=== PATIENT | male | born 1990 | race Caucasian/White ===

== ENCOUNTER 2021-09-29 13:00 | Inpatient (IN) | payer MEDICAID, OTHER ==
[~2021-09-29] VITALS: Ht 180.3 cm; Wt 65.9 kg
[~2021-09-29 13:00] MED LIST: FAMO-128 PO; ONDA8TAB9 PO
[2021-09-29 13:55] LABS: ALANINE AMINOTRANSFERASE 154 U/L (12-78); ALBUMIN 4.3 G/DL (3.4-5.0); ALBUMIN/GLOBULIN RATIO 1.2 (1.1-1.5); ALKALINE PHOSPHATASE 58 IU/L (46-116); ANION GAP 17 (8-16); ASPARTATE AMINO TRANSFERASE 254 U/L (10-37); BILIRUBIN,TOTAL 2.1 MG/DL (0.1-1.0); BLOOD UREA NITROGEN 28 MG/DL (7-18); BUN/CREATININE RATIO 14.4 (5.4-32.0); CALCIUM 8.6 MG/DL (8.5-10.1); CHLORIDE 87 MMOL/L (99-107); CREATININE 1.94 MG/DL (0.60-1.10); GLUCOSE 241 MG/DL (70-104); SODIUM 133 MMOL/L (135-145); TOTAL PROTEIN 7.9 G/DL (6.4-8.2); eGFR 40 ML/MIN
[2021-09-29 14:38] LABS: LIPASE 11546 U/L (73-393); POTASSIUM 4.2 MMOL/L (3.5-5.1)
[2021-09-29 14:42] LABS: BASOPHILS % (AUTO) 0.2 % (0-1); EOSINOPHILS % (AUTO) 0 % (0-6); HEMATOCRIT 52.6 % (42.0-52.0); LYMPHOCYTES # (AUTO) 0.8 X10'3 (1.1-4.8); LYMPHOCYTES % (AUTO) 5.8 % (21-51); MEAN CORPUSCULAR HEMOGLOBIN 34.2 PG (27.0-31.0); MEAN CORPUSCULAR HGB CONC 34.2 g/dL (33.0-36.5); MEAN CORPUSCULAR VOLUME 99.9 FL (78-98); MEAN PLATELET VOLUME 10.1 FL (7.4-10.4); MONOCYTES # (AUTO) 1.1 X10'3 (0-0.9); MONOCYTES % (AUTO) 8.1 % (2-12); NEUTROPHILS # (AUTO) 11.3 X10'3 (1.8-7.7); NEUTROPHILS % (AUTO) 85.9 % (42-75); PLATELET COUNT 89 X10'3 (140-440); RED BLOOD COUNT 5.27 X10'6 (4.70-6.10); RED CELL DISTRIBUTION WIDTH 14.3 % (11.5-14.5); WHITE BLOOD COUNT 13.1 X10'3 (4.5-11.0)
[2021-09-29] MEDS ORDERED: ondansetron/PF 4mg/2ml inj IV ONE (15:05)
[2021-09-29] MEDS ORDERED: morphine 4 MG/ML inj SYRINge IV ONE (15:05)
[2021-09-29] MEDS ORDERED: normal saline 1000ml 1,000 ML IV ONE ×4 (15:15→20:50)
[2021-09-29 15:28] LABS: TOTAL CELLS COUNTED 100
[2021-09-29 15:29] LABS: PLATELET ESTIMATE DECREASED
[2021-09-29 15:32] LABS: ETHANOL < 0.010 GM/DL (0.0-0.010)
[2021-09-29] MEDS ORDERED: NO HOME MEDS (15:34)
[2021-09-29] MEDS ORDERED: piperacillin/tazo 3.375gm/50ml 50 ML IV ONE (16:20)
[2021-09-29 17:33] LABS: URINE AMPHETAMINE SCREEN NEGATIVE (Neg); URINE BARBITUATE SCREEN NEGATIVE (Neg); URINE BENZODIAZEPINES SCREEN NEGATIVE (Neg); URINE CANNABINOID SCREEN NEGATIVE (Neg); URINE COCAINE SCREEN NEGATIVE (Neg); URINE METHADONE SCREEN NEGATIVE (Neg); URINE OPIATE SCREEN POSITIVE (Neg); URINE PHENCYCLIDINE SCREEN NEGATIVE (Neg)
[2021-09-29 17:38] LABS: UA COLLECTION TYPE NON-SPECIFIED
[2021-09-29 17:39] LABS: CLARITY,URINE CLOUDY (Clear); COLOR,URINE AMBER (Yellow)
[2021-09-29 17:46] LABS: HYALINE CASTS >30 /LPF (NEGATIVE); MUCUS STRANDS MODERATE /LPF (Neg); SQUAMOUS EPITHELIAL CELL,UR FEW /LPF (FEW)
[2021-09-29] MEDS ORDERED: LORazepam 2 mg/ml vial ONE (17:46)
[2021-09-29 17:47] LABS: BACTERIA,URINE 1+ /HPF (Neg); RBC,URINE 0-2 /HPF (0-2); WBC,URINE 0-4 /HPF (0-4)
[2021-09-29] MEDS ORDERED: levetiracetam inj 1,000 MG in normal saline 100ml IV soln 90 ML IV STA (17:47)
[2021-09-29] MEDS ORDERED: LORazepam 2 mg/ml vial IV ONE (17:50)
[2021-09-29] MEDS ORDERED: levetiracetam-NS 1000mg/100ml 100 ML IV STA (17:54)
--- NOTE | 2021-09-29 18:45 | NUR ---
ASSUMED CARE OF PT. PT HAS BEEN MEDICATED W/ ATIVAN. PT ALERT AND ORIENTED X4. TACHYCARDIC. HOSPITALIST HAS COME TO ASSESS PT AND IS TALKING W/ PT.
[2021-09-29] MEDS ORDERED: ondansetron/PF 4mg/2ml inj IV PRN (18:50)
[2021-09-29] MEDS ORDERED: magnesium 2GM in 50ml NS 50 ML IV PRN (18:50)
[2021-09-29] MEDS ORDERED: ondansetron 4mg rapidly disintigrating tab PO PRN (18:50)
[2021-09-29] MEDS ORDERED: acetaminophen 325mg tablet PO PRN (18:50)
[2021-09-29] MEDS ORDERED: acetaminophen 650mg rectal suppository RC PRN (18:50)
[2021-09-29] MEDS ORDERED: HYDROcodone/acetaminophen 10/325mg tab PO PRN (18:50)
[2021-09-29] MEDS ORDERED: magnesium 4gm in 100ml NS 100 ML IV PRN (18:50)
[2021-09-29] MEDS ORDERED: magnesium Cl slow-release 64mg tablet PO PRN (18:50)
[2021-09-29] MEDS ORDERED: magnesium hydroxide 30ml (MOM) UD suspension PO PRN (18:50)
[2021-09-29] MEDS ORDERED: metoclopramide 5 mg/ml inj IV PRN (18:50)
[2021-09-29] MEDS ORDERED: bisacodyl 10mg suppository rectal RC PRN (18:50)
[2021-09-29] MEDS ORDERED: mag hydrox/Alum hydrox/simeth 30ml oral suspension PO PRN (18:50)
[2021-09-29] MEDS ORDERED: haloperidol 5mg tablet PO PRN (18:50)
[2021-09-29] MEDS ORDERED: potassium Cl 20 mEq SR tablet PO PRN (18:50)
[2021-09-29] MEDS ORDERED: HYDROcodone/acetaminophen 5mg/325mg tablet PO PRN (18:50)
[2021-09-29] MEDS ORDERED: HYDROmorphone inj. 0.5 MG/0.5 ML DISP.SYRIN IV PRN (18:50)
[2021-09-29] MEDS ORDERED: LORazepam 2 mg/ml vial IV PRN (18:50)
[2021-09-29] MEDS ORDERED: haloperidol lactate 5mg/ml inj IM PRN (18:50)
[2021-09-29] MEDS ORDERED: dextrose 50%-water 50ml dispensing syringe IV PRN (18:50)
[2021-09-29] MEDS ORDERED: HYDROmorphone/PF 0.2 MG/ML SYRINGE IV PRN (18:50)
--- NOTE | 2021-09-29 19:27 | NUR ---
ASSISTED PTS MOTHER LOUIS EVELYN WITH A COVID TEST THAT WAS NEGAIVE
[2021-09-29] MEDS: LORazepam 2 mg/ml vial IV PRN ×6 (19:34→21:38)
--- NOTE | 2021-09-29 19:35 | NUR ---
PT BACK FROM CT. CONTINUES TO BE TACHYCARDIC. SPO2 ABOVE 98%. 2 LITERS OF NS RUNNING. RN GABRIELA BEATTY HOSPITALIST WITH CRITICAL LACTIC RESULT.
[2021-09-29 19:40] LABS: MAGNESIUM 1.7 MG/DL (1.5-2.4)
[2021-09-29 19:41] LABS: POTASSIUM 4.1 MMOL/L (3.5-5.1)
[2021-09-29] MEDS: normal saline 1000ml 1,000 ML IV SCH (19:41)
[2021-09-29 19:42] LABS: APTT 27 SECONDS (22-32)
--- NOTE | 2021-09-29 19:46 | NUR ---
SPOKE TO DR FELICIANO, TALKED TO HIM ABOUT PT'S LACTIC ACID, TACHYCARDIA, AND BLOOD PRESSURE. HE WILL PUT IT ORDER FOR SHANELL.
[2021-09-29] MEDS: enoxaparin 40mg/0.4ml syringe SQ SCH (20:00)
[2021-09-29] MEDS: docusate sod 100mg capsule PO SCH (20:00)
[2021-09-29] MEDS: K and/or MAG REPLACEMENT MC SCH (20:00)
--- NOTE | 2021-09-29 20:00 | NUR ---
SITTER IN ROOM W/ PT. PT MEDICATED WITH ATIVAN PER PROTOCOL.
--- NOTE | 2021-09-29 20:02 | NUR ---
CALLED PHARMACY AND REQUESTED ATIVAN TO BE STOCKED IN OMNICELL.
--- NOTE | 2021-09-29 20:19 | NUR ---
PT MEDICATED W/ ATIVAN PER ALCOHOL WITHDRAWAL [facility] PROTOCOL. PT STILL TACHYCARDIC.
--- NOTE | 2021-09-29 20:29 | NUR ---
PT ATTEMPTED TO PULL AT LINES. ALSO PULLED AT NEWLY PLACED REECE CATHETER. SITTER IN ROOM.
--- NOTE | 2021-09-29 20:46 | NUR ---
PT MEDICATED FOR ALCOHOL WITHRAWAL AGITATION PER PROTOCOL. SITTER REMAINS AT BEDSIDE W/ PT.
[2021-09-29] MEDS ORDERED: temazepam 15mg capsule PO PRN (21:00)
--- NOTE | 2021-09-29 21:00 | NUR ---
PT MEDICATED WITH HALDOL PER ETOH WITHDRAWAL PROTOCOL
--- NOTE | 2021-09-29 21:02 | NUR ---
LOVENOX NOT GIVEN PT PLT COUNT LOW
--- NOTE | 2021-09-29 21:13 | NUR ---
PT MEDICATED W/ ATIVAN PER ETOH WITHDRAWAL PROTOCOL. BP GOOD. SAO2 98% ON RA. PT CONFUSED BUT CAN BE REDIRECTED FOR SHORT PERIOD OF TIME.
--- NOTE | 2021-09-29 21:19 | NUR ---
SPOKE TO DR FELICIANO CONCERNING PT'S CONTINUED TACHYCARDIA AND AGITATION. GIVEN ORDER TO CONTINUE GIVING ATIVAN "BECAUSE HE NEEDS TO SLEEP". DR FELICIANO GAVE TELEPHONE ORDER FOR SOFT RESTRAINTS. SITTER IN ROOM APPLYING SOFT RESTRAINTS ON PT PT IS PULLING HIS REECE CATHETER.
--- NOTE | 2021-09-29 21:20 | NUR ---
ASSESSED PT'S SOFT WRIST RESTRAINTS. DISTAL CSM INTACT TO BOTH HANDS.
--- NOTE | 2021-09-29 21:30 | NUR ---
BUSINESS DEVELOPMENT, ANJALI, SPOKE TO NURSING CLINICAL REVIEW NURSE ABOUT PT'S ATIVAN DOSES AND OVERALL STATUS.
[2021-09-29] MEDS: thiamine 100mg/ml 2ml inj. IV SCH (21:38)
--- NOTE | 2021-09-29 21:42 | NUR ---
PT SLEEPING BUT EASILY AWAKENS WHEN I TALK TO HIM OR START GIVING MEDICATIONS. CONTINUES TO BE TACHYCARDIC. BP 111/68. SPO2 98% ON RA.
--- NOTE | 2021-09-29 22:04 | NUR ---
GAVE REPORT TO FLOOR RN. PT HAS NO TELE MONITOR ORDER. D/T TACHYCARDIA, SPOKE TO DR FELICIANO OVER THE PHONE. GIVE TO FOR TELEMONITOR ORDER. ORDER PLACED. PREPARING PT FOR TRANSPORT TO FLOOR.
--- NOTE | 2021-09-29 22:26 | NUR ---
PT TRANSPORTED TO FLOOR. FLOOR RN, SANDIE, W/ PT.
--- NOTE | 2021-09-29 22:29 | NUR ---
UPDATED MOTHER, LOUIS, ON PT'S STATUS.
[2021-09-29 22:45] VITALS: BP 114/69
--- NOTE | 2021-09-29 23:05 | NUR ---
Received report from JAN Anderson. 2220L:Patient transported by [employer] and Monica. Patient moved from rney to bed. Soft wrist restraints are in place. Patient is drowsy but arouses and talking, speech is grabbled. Bag of belongings came up with patient. Tele placed, Vitals taken, Temp 101.1 axillary. Notified, Tylenol order given NC. Will continue to monitor. Addendum: 09/30/21 at 0342 by Reuben Ochoa RN speech is garbled
[2021-09-29] MEDS: acetaminophen 650mg rectal suppository RC PRN (23:25)
[2021-09-29] MEDS: piperacillin/tazo 3.375gm/50ml 50 ML IV SCH (23:27)
--- NOTE | 2021-09-30 01:42 | NUR ---
Notified MD of heart rate sustaining in the 130's, and low urine output. New order given for 500 LR bolus, If hear rate still high give 500ml more.
[2021-09-30] MEDS ORDERED: ringers solution, lacted 1,000 ML IV ONE (01:45)
[2021-09-30 02:04] VITALS: BP 116/80
--- NOTE | 2021-09-30 03:23 | NUR ---
Patient woke up and seems to be clearing mentally. He was able to answer questions appropriately,and asked for the remote to turn the TV on. Speech is more clear. Restraints were removed, patient educated on how to use the call light, and not to pull on his lines or zelaya. Will continue to monitor.
--- NOTE | 2021-09-30 03:37 | NUR ---
Heart rate is still tachy. It is between 125-129, after 500ml of fluid bolus. I just started another 500ml bolus, per orders given earlier by Hospitalist, Dr Tuttle. Will continue to monitor patient
--- NOTE | 2021-09-30 04:07 | NUR ---
Patient resting, in no apparent distress, Respirations 21, HR down to 110 after another 500ml bolus. Restraints are still removed at this time. Will continue to monitor heart rate and urine out put.
[2021-09-30] MEDS: normal saline 1000ml 1,000 ML IV SCH ×3 (04:50→20:16)
[2021-09-30] MEDS: LORazepam 2 mg/ml vial IV PRN ×8 (05:10→22:29)
[2021-09-30 06:00] VITALS: BP 115/87
--- NOTE | 2021-09-30 06:28 | NUR ---
Patient had restraints placed back on in 0500 hour. Was instructed multiple times not to try and get out of bed,or pull on lines. 0600: Patient was found with EKG, IV, and zelaya out, and he was in the bathroom. Dr Tuttle was notified, sitter order was given. I informed Dr Tuttle that his heart rate has was back in the 130's and with exertion 150'2. He said , " Sedate him, He needs to sleep. Give Ativan every 15mins". I informed him that he does not have Ativan ordeed every 15 mins. He said put the severe protocol in place.
--- NOTE | 2021-09-30 06:30 | NUR ---
Patient in room ORTHO 4017. I have received report from SHELLEY MONTOYA and had the opportunity to ask questions and assume patient care.
[2021-09-30] MEDS ORDERED: LORazepam 2 mg/ml vial IV PRN (06:50)
--- NOTE | 2021-09-30 06:59 | NUR ---
Problems reprioritized. Patient report given, questions answered & plan of care reviewed with JAN Mcmanus Sitter at bedside.
[2021-09-30 07:29] LABS: BASOPHILS % (AUTO) 0.3 % (0-1); EOSINOPHILS % (AUTO) 0 % (0-6); HEMATOCRIT 41.6 % (42.0-52.0); HEMOGLOBIN 14.3 g/dl (14.0-17.9); LYMPHOCYTES # (AUTO) 0.7 X10'3 (1.1-4.8); LYMPHOCYTES % (AUTO) 7.6 % (21-51); MEAN CORPUSCULAR HEMOGLOBIN 34.9 PG (27.0-31.0); MEAN CORPUSCULAR HGB CONC 34.4 g/dL (33.0-36.5); MEAN CORPUSCULAR VOLUME 101.2 FL (78-98); MONOCYTES # (AUTO) 0.9 X10'3 (0-0.9); MONOCYTES % (AUTO) 9.7 % (2-12); NEUTROPHILS # (AUTO) 7.6 X10'3 (1.8-7.7); NEUTROPHILS % (AUTO) 82.4 % (42-75); PLATELET COUNT 61 X10'3 (140-440); RED BLOOD COUNT 4.11 X10'6 (4.70-6.10); RED CELL DISTRIBUTION WIDTH 14.3 % (11.5-14.5); WHITE BLOOD COUNT 9.3 X10'3 (4.5-11.0)
[2021-09-30 07:31] LABS: APTT 29 SECONDS (22-32)
[2021-09-30 07:35] LABS: ALANINE AMINOTRANSFERASE 199 U/L (12-78); ALBUMIN 2.9 G/DL (3.4-5.0); ALBUMIN/GLOBULIN RATIO 1.1 (1.1-1.5); ALKALINE PHOSPHATASE 39 IU/L (46-116); AMYLASE 504 U/L (25-115); ANION GAP 13 (8-16); ASPARTATE AMINO TRANSFERASE 425 U/L (10-37); BLOOD UREA NITROGEN 17 MG/DL (7-18); BUN/CREATININE RATIO 13.5 (5.4-32.0); CALCIUM 6.7 MG/DL (8.5-10.1); CHLORIDE 106 MMOL/L (99-107); CREATININE 1.26 MG/DL (0.60-1.10); GLUCOSE 137 MG/DL (70-104); MAGNESIUM 1.5 MG/DL (1.5-2.4); PHOSPHORUS 1.9 MG/DL (2.3-4.5); SODIUM 142 MMOL/L (135-145); TOTAL CARBON DIOXIDE 23.2 MMOL/L (24-32); TOTAL PROTEIN 5.5 G/DL (6.4-8.2); eGFR 66 ML/MIN
[2021-09-30] MEDS: multivitamins, therapeutics tablet PO SCH (07:51)
[2021-09-30] MEDS: docusate sod 100mg capsule PO SCH ×2 (07:51→20:00)
[2021-09-30] MEDS: thiamine 100mg/ml 2ml inj. IV SCH ×3 (07:55→21:54)
[2021-09-30] MEDS: levetiracetam-NS 1000mg/100ml 100 ML IV SCH ×2 (07:55→20:16)
[2021-09-30] MEDS ORDERED: folic acid 1mg/0.2ml inj IV SCH (08:00)
[2021-09-30] MEDS ORDERED: thiamine 100mg/ml 2ml inj. IV SCH (08:00)
[2021-09-30] MEDS: K and/or MAG REPLACEMENT MC SCH ×2 (08:00→20:00)
[2021-09-30] MEDS ORDERED: Levetiracetam-NS 500mg/100ml 100 ML IV SCH (08:00)
[2021-09-30] MEDS ORDERED: levetiracetam-NS 1000mg/100ml 100 ML IV SCH (08:00)
[2021-09-30 08:08] LABS: LARGE PLATELETS FEW; PLATELET ESTIMATE DECREASED; TOTAL CELLS COUNTED 100
[2021-09-30 08:24] LABS: LIPASE 3284 U/L (73-393)
[2021-09-30 08:26] LABS: POTASSIUM 4.2 MMOL/L (3.5-5.1)
--- NOTE | 2021-09-30 09:08 | NUR ---
Initial: Pt admit for sepsis secondary to pancreatitis with gallbladder sludge. Per H&P CT scan of abdomen and pelvis showed acute pancreatitis with hepatomegaly compatible with fatty infiltration, gallbladder sludge with nondistended gallbladder, and peripancreatic fat inflammation. Pt with EtOH hx, currently receiving routine Thiamine, Folic acid, and MVI. Pt currently NPO, A/O x 1 and confused with a sitter at bedside per EMR. Consider BSS with ST if pt remains confused once diet is able to be advanced. LBM 09/27, with routine bowel care. Will continue to follow closely and make recommendations as appropriate. Recommendations: 1) Advance to low fat diet as medically indicated; regular diet if pt able to tolerate 2) Monitor need for ST BSS with diet advancement 3) Monitor need for additional protein/ONS with diet advancement 4) Continue routine Thiamine, Folic acid, and MVI in view of EtOH hx with elevated MCV 5) Routine bowel care 6) Scaled weight this admit; weekly scaled weights thereafter Addendum: 09/30/21 at [address] Amended: Links added.
[2021-09-30] MEDS: piperacillin/tazo 3.375gm/50ml 50 ML IV SCH ×3 (09:53→23:27)
[2021-09-30] MEDS: folic acid 1mg/0.2ml inj IV SCH (09:53)
[2021-09-30 10:00] VITALS: BP 113/71
[2021-09-30] MEDS: acetaminophen 650mg rectal suppository RC PRN (10:07)
--- NOTE | 2021-09-30 10:36 | NUR ---
NOTIFIED DR MANLEY RE: PTS HR IS MAINTAINING IN THE 130s AND FEVER OF 102. NO NEW ORDERS GIVEN
--- NOTE | 2021-09-30 13:30 | NUR ---
PAGED DR MANLEY RE: MIAH RIVAS. TEMP 102.3 TEMPORAL, 100.4 AX. TYLENOL GIVEN 3 HRS AGO. SURGICAL ABHI [id number]
--- NOTE | 2021-09-30 18:21 | NUR ---
Problems reprioritized. Patient report given, questions answered & plan of care reviewed with SHARMIN FINNEY RN.
--- NOTE | 2021-09-30 18:30 | NUR ---
Patient in room ORTHO 4009. I have received report from ABHI MONTOYA and had the opportunity to ask questions and assume patient care.
[2021-09-30 19:00] VITALS: BP 118/73
[2021-09-30] MEDS: enoxaparin 40mg/0.4ml syringe SQ SCH (20:00)
--- NOTE | 2021-09-30 23:20 | NUR ---
Patient report given, questions answered & plan of care reviewed with RON MONTOYA.
--- NOTE | 2021-09-30 23:22 | NUR ---
Received report from Roberto MONTOYA.
[2021-10-01 02:00] VITALS: BP 109/72
--- NOTE | 2021-10-01 02:25 | NUR ---
I have reviewed and agree with all interventions, assessments performed and documented by Nadeen Senior RN.
[2021-10-01] MEDS: LORazepam 2 mg/ml vial IV PRN (05:16)
[2021-10-01] MEDS: normal saline 1000ml 1,000 ML IV SCH (05:21)
[2021-10-01 06:00] VITALS: BP 97/64
--- NOTE | 2021-10-01 06:22 | NUR ---
Patient in room ORTHO 4009. I have received report from Ximena MONTOYA and had the opportunity to ask questions and assume patient care.
[2021-10-01 06:42] LABS: BASOPHILS % (AUTO) 0.7 % (0-1); EOSINOPHILS % (AUTO) 0.2 % (0-6); LYMPHOCYTES # (AUTO) 0.9 X10'3 (1.1-4.8); MEAN CORPUSCULAR HGB CONC 34.1 g/dL (33.0-36.5); MONOCYTES # (AUTO) 0.8 X10'3 (0-0.9); PLATELET COUNT 62 X10'3 (140-440); RED BLOOD COUNT 3.45 X10'6 (4.70-6.10)
--- NOTE | 2021-10-01 06:42 | NUR ---
Problems reprioritized. Patient report given, questions answered & plan of care reviewed with Vero MONTOYA. Sitter at bedside
[2021-10-01 06:44] LABS: HEMATOCRIT 35.4 % (42.0-52.0); HEMOGLOBIN 12.1 g/dl (14.0-17.9); LYMPHOCYTES % (AUTO) 14.1 % (21-51); MEAN CORPUSCULAR HEMOGLOBIN 34.9 PG (27.0-31.0); MEAN CORPUSCULAR VOLUME 102.5 FL (78-98); MEAN PLATELET VOLUME 9.9 FL (7.4-10.4); MONOCYTES % (AUTO) 11.8 % (2-12); NEUTROPHILS # (AUTO) 4.8 X10'3 (1.8-7.7); NEUTROPHILS % (AUTO) 73.2 % (42-75); RED CELL DISTRIBUTION WIDTH 14.8 % (11.5-14.5); WHITE BLOOD COUNT 6.5 X10'3 (4.5-11.0)
[2021-10-01 06:52] LABS: APTT 32 SECONDS (22-32)
[2021-10-01 06:59] LABS: ALANINE AMINOTRANSFERASE 442 U/L (12-78); ALBUMIN 2.5 G/DL (3.4-5.0); ALBUMIN/GLOBULIN RATIO 0.9 (1.1-1.5); ALKALINE PHOSPHATASE 36 IU/L (46-116); AMYLASE 199 U/L (25-115); ANION GAP 9 (8-16); ASPARTATE AMINO TRANSFERASE 901 U/L (10-37); BILIRUBIN,TOTAL 1.4 MG/DL (0.1-1.0); BLOOD UREA NITROGEN 10 MG/DL (7-18); BUN/CREATININE RATIO 11.2 (5.4-32.0); CALCIUM 6.5 MG/DL (8.5-10.1); CHLORIDE 111 MMOL/L (99-107); CREATININE 0.89 MG/DL (0.60-1.10); GLUCOSE 92 MG/DL (70-104); LIPASE 857 U/L (73-393); MAGNESIUM 1.8 MG/DL (1.5-2.4); PHOSPHORUS 1.4 MG/DL (2.3-4.5); SODIUM 145 MMOL/L (135-145); TOTAL CARBON DIOXIDE 24.7 MMOL/L (24-32); TOTAL PROTEIN 5.3 G/DL (6.4-8.2); eGFR > 90 ML/MIN
[2021-10-01 07:02] LABS: POTASSIUM 3.3 MMOL/L (3.5-5.1)
--- NOTE | 2021-10-01 07:19 | NUR ---
Pt working with PT. PT assisted pt to bathroom and was waiting at the door while pt was on toilet. Pt leaned too far forward and fell to the floor on hands and knees. Pt denied pain and appears to have no injuries. Blood pressure after fall 118/75, heart rate 93. Paged Dr. Natarajan to notify her.
--- NOTE | 2021-10-01 07:19 | NUR ---
PAGER ID: [phone] MESSAGE: Vero [phone] re: Damir Robles in [id number]. Pt had a fall with PT in bathroom. No injuries. Fell off toilet onto hands and knees. VSS
[2021-10-01 07:45] LABS: PLATELET ESTIMATE DECREASED; SMUDGE CELLS 1+; TOTAL CELLS COUNTED 100
[2021-10-01 07:46] LABS: TOXIC GRANULATION 1+; TOXIC VACUOLATION FEW
[2021-10-01] MEDS: levetiracetam-NS 1000mg/100ml 100 ML IV SCH ×2 (07:49→19:30)
[2021-10-01] MEDS: docusate sod 100mg capsule PO SCH ×2 (08:00→19:25)
[2021-10-01] MEDS: K and/or MAG REPLACEMENT MC SCH ×2 (08:00→19:24)
[2021-10-01] MEDS: multivitamins, therapeutics tablet PO SCH (08:00)
[2021-10-01] MEDS: thiamine 100mg/ml 2ml inj. IV SCH ×3 (08:10→20:20)
[2021-10-01] MEDS: piperacillin/tazo 3.375gm/50ml 50 ML IV SCH (08:16)
[2021-10-01 10:00] VITALS: BP 115/77
[2021-10-01] MEDS: folic acid 1mg/0.2ml inj IV SCH (10:30)
[2021-10-01] MEDS: potassium CL 10mEq/100ml bag 100 ML IV PRN ×4 (13:35→18:23)
--- NOTE | 2021-10-01 15:31 | NUR ---
PAGER ID: [phone] MESSAGE: Vero [phone] re: Damir Robles Jr. in [id number]. Pt's blood sugars are going down. Current BS is 79. Pt's fluids are NS @ 100. Do you want fluid with D5? Does he still need to be NPO?
[2021-10-01] MEDS: dextrose 5%-normal saline 1,000 ML IV SCH (17:05)
[2021-10-01] MEDS: acetaminophen 650mg rectal suppository RC PRN (17:25)
[2021-10-01 18:00] VITALS: BP 104/73
[2021-10-01] MEDS ORDERED: LORazepam 2 mg/ml vial IV PRN (18:50)
[2021-10-01] MEDS ORDERED: LORazepam 1 MG tablet PO PRN (18:50)
[2021-10-01] MEDS: enoxaparin 40mg/0.4ml syringe SQ SCH (19:24)
[2021-10-01 22:00] VITALS: BP 111/76
[2021-10-02] MEDS: dextrose 5%-normal saline 1,000 ML IV SCH (02:28)
[2021-10-02 06:00] VITALS: BP 118/82
--- NOTE | 2021-10-02 06:44 | NUR ---
Problems reprioritized. Patient report given, questions answered & plan of care reviewed with Jesica MONTOYA.
[2021-10-02 07:30] LABS: BASOPHILS % (AUTO) 0.7 % (0-1); EOSINOPHILS % (AUTO) 0.5 % (0-6); HEMATOCRIT 33.3 % (42.0-52.0); HEMOGLOBIN 11.5 g/dl (14.0-17.9); LYMPHOCYTES # (AUTO) 0.9 X10'3 (1.1-4.8); LYMPHOCYTES % (AUTO) 13.8 % (21-51); MEAN CORPUSCULAR HEMOGLOBIN 35.6 PG (27.0-31.0); MEAN CORPUSCULAR HGB CONC 34.5 g/dL (33.0-36.5); MEAN CORPUSCULAR VOLUME 103.1 FL (78-98); MEAN PLATELET VOLUME 9.1 FL (7.4-10.4); MONOCYTES # (AUTO) 1.3 X10'3 (0-0.9); MONOCYTES % (AUTO) 20.4 % (2-12); NEUTROPHILS # (AUTO) 4.2 X10'3 (1.8-7.7); NEUTROPHILS % (AUTO) 64.6 % (42-75); PLATELET COUNT 90 X10'3 (140-440); RED BLOOD COUNT 3.22 X10'6 (4.70-6.10); RED CELL DISTRIBUTION WIDTH 14.3 % (11.5-14.5); WHITE BLOOD COUNT 6.4 X10'3 (4.5-11.0)
--- NOTE | 2021-10-02 07:33 | NUR ---
PAGER ID: [phone] MESSAGE: Jose [phone] Re: Travis [phone] patient would like breakfast can he eat yet? Also, need to renew sitter orders
[2021-10-02 07:37] LABS: APTT 32 SECONDS (22-32)
[2021-10-02 07:43] LABS: ALANINE AMINOTRANSFERASE 302 U/L (12-78); ALBUMIN 2.7 G/DL (3.4-5.0); ALBUMIN/GLOBULIN RATIO 0.8 (1.1-1.5); ALKALINE PHOSPHATASE 48 IU/L (46-116); AMYLASE 101 U/L (25-115); ANION GAP 8 (8-16); ASPARTATE AMINO TRANSFERASE 286 U/L (10-37); BILIRUBIN,TOTAL 1.3 MG/DL (0.1-1.0); BLOOD UREA NITROGEN 4 MG/DL (7-18); BUN/CREATININE RATIO 5.7 (5.4-32.0); CALCIUM 7.4 MG/DL (8.5-10.1); CHLORIDE 108 MMOL/L (99-107); GLUCOSE 129 MG/DL (70-104); LIPASE 324 U/L (73-393); MAGNESIUM 1.5 MG/DL (1.5-2.4); PHOSPHORUS 1.3 MG/DL (2.3-4.5); SODIUM 141 MMOL/L (135-145); TOTAL CARBON DIOXIDE 24.8 MMOL/L (24-32); TOTAL PROTEIN 5.9 G/DL (6.4-8.2); eGFR > 90 ML/MIN
[2021-10-02] MEDS: docusate sod 100mg capsule PO SCH ×2 (08:00→19:14)
[2021-10-02] MEDS: K and/or MAG REPLACEMENT MC SCH ×3 (08:00→19:27)
--- NOTE | 2021-10-02 08:30 | NUR ---
PAGER ID: [phone] MESSAGE: Jesica Neuro [phone] Re: [id number] patient would like to know if he can have breakfast please call
--- NOTE | 2021-10-02 08:32 | NUR ---
PAGER ID: [phone] MESSAGE: Jesica Redman [phone] Re: Travis [id number] Critical K+3.0 replacing per Protocol
[2021-10-02] MEDS: levetiracetam-NS 1000mg/100ml 100 ML IV SCH ×2 (09:11→19:22)
[2021-10-02] MEDS: multivitamins, therapeutics tablet PO SCH (09:11)
[2021-10-02] MEDS: potassium Cl 20 mEq SR tablet PO PRN ×3 (09:12→22:59)
[2021-10-02] MEDS: folic acid 1mg/0.2ml inj IV SCH (09:12)
[2021-10-02 09:59] LABS: PLATELET ESTIMATE DECREASED; TOTAL CELLS COUNTED 100
[2021-10-02 10:00] VITALS: BP 124/79
[2021-10-02 10:01] LABS: POLYCHROMASIA FEW
[2021-10-02] MEDS: thiamine 100mg/ml 2ml inj. IV SCH ×2 (12:28→12:47)
--- NOTE | 2021-10-02 16:56 | NUR ---
PAGER ID: [phone] MESSAGE: Vanessa Redman [phone] Re: Travis [id number] please call re: diet and IV fluids?
[2021-10-02] MEDS: acetaminophen 325mg tablet PO PRN (17:45)
[2021-10-02 18:00] VITALS: BP 115/79
--- NOTE | 2021-10-02 18:54 | NUR ---
Problems reprioritized. Patient report given, questions answered & plan of care reviewed with Ximena MONTOYA.
[2021-10-02] MEDS: enoxaparin 40mg/0.4ml syringe SQ SCH (19:14)
[2021-10-02] MEDS ORDERED: potassium CL 10mEq/100ml bag 100 ML IV PRN (19:15)
[2021-10-02] MEDS ORDERED: magnesium 2GM in 50ml NS 50 ML IV PRN (19:15)
[2021-10-02] MEDS ORDERED: magnesium Cl slow-release 64mg tablet PO PRN (19:15)
[2021-10-02] MEDS ORDERED: potassium Cl 20 mEq SR tablet PO PRN (19:15)
[2021-10-02] MEDS ORDERED: magnesium 4gm in 100ml NS 100 ML IV PRN (19:15)
[2021-10-02 22:00] VITALS: BP 114/76
[2021-10-02] MEDS ORDERED: loperamide 2mg capsule PO PRN (22:30)
[2021-10-03] MEDS: potassium Cl 20 mEq SR tablet PO PRN (03:00)
[2021-10-03] MEDS: acetaminophen 325mg tablet PO PRN ×2 (04:56→11:35)
[2021-10-03 06:00] VITALS: BP 123/78
--- NOTE | 2021-10-03 06:48 | NUR ---
Problems reprioritized. Patient report given, questions answered & plan of care reviewed with Lakia MONTOYA.
[2021-10-03] MEDS: docusate sod 100mg capsule PO SCH (08:00)
[2021-10-03] MEDS ORDERED: thiamine 100mg tablet PO SCH ×2 (08:00)
[2021-10-03] MEDS ORDERED: folic acid 1mg tablet PO SCH (08:00)
[2021-10-03] MEDS: K and/or MAG REPLACEMENT MC SCH ×2 (08:00)
[2021-10-03 08:08] LABS: BASOPHILS % (AUTO) 0.7 % (0-1); HEMATOCRIT 36.1 % (42.0-52.0)
[2021-10-03 08:10] LABS: EOSINOPHILS % (AUTO) 0.7 % (0-6); HEMOGLOBIN 12.6 g/dl (14.0-17.9); LYMPHOCYTES # (AUTO) 0.8 X10'3 (1.1-4.8); LYMPHOCYTES % (AUTO) 11.3 % (21-51); MEAN CORPUSCULAR HEMOGLOBIN 35.7 PG (27.0-31.0); MEAN CORPUSCULAR HGB CONC 34.9 g/dL (33.0-36.5); MEAN CORPUSCULAR VOLUME 102.2 FL (78-98); MEAN PLATELET VOLUME 8.9 FL (7.4-10.4); MONOCYTES # (AUTO) 2.3 X10'3 (0-0.9); MONOCYTES % (AUTO) 33.4 % (2-12); NEUTROPHILS # (AUTO) 3.6 X10'3 (1.8-7.7); NEUTROPHILS % (AUTO) 53.9 % (42-75); PLATELET COUNT 131 X10'3 (140-440); RED BLOOD COUNT 3.53 X10'6 (4.70-6.10); RED CELL DISTRIBUTION WIDTH 14.2 % (11.5-14.5); WHITE BLOOD COUNT 6.8 X10'3 (4.5-11.0)
[2021-10-03] MEDS: multivitamins, therapeutics tablet PO SCH (08:28)
[2021-10-03] MEDS: levetiracetam-NS 1000mg/100ml 100 ML IV SCH (08:29)
[2021-10-03 08:30] LABS: ALANINE AMINOTRANSFERASE 242 U/L (12-78); ALBUMIN 2.9 G/DL (3.4-5.0); ALBUMIN/GLOBULIN RATIO 0.8 (1.1-1.5); ALKALINE PHOSPHATASE 63 IU/L (46-116); AMYLASE 102 U/L (25-115); ANION GAP 10 (8-16); ASPARTATE AMINO TRANSFERASE 162 U/L (10-37); BILIRUBIN,TOTAL 1.3 MG/DL (0.1-1.0); BLOOD UREA NITROGEN 3 MG/DL (7-18); BUN/CREATININE RATIO 4.5 (5.4-32.0); CALCIUM 8.5 MG/DL (8.5-10.1); CHLORIDE 103 MMOL/L (99-107); CREATININE 0.66 MG/DL (0.60-1.10); GLUCOSE 113 MG/DL (70-104); LIPASE 336 U/L (73-393); MAGNESIUM 1.8 MG/DL (1.5-2.4); PHOSPHORUS 1.5 MG/DL (2.3-4.5); POTASSIUM 3.8 MMOL/L (3.5-5.1); SODIUM 136 MMOL/L (135-145); TOTAL CARBON DIOXIDE 23.1 MMOL/L (24-32); TOTAL PROTEIN 6.7 G/DL (6.4-8.2); eGFR > 90 ML/MIN
[2021-10-03 08:53] LABS: PLATELET ESTIMATE DECREASED; POLYCHROMASIA FEW; TOTAL CELLS COUNTED 100
[2021-10-03 10:00] VITALS: BP 124/80
[2021-10-03] MEDS ORDERED: MULT-1249 PO (10:37)
[2021-10-03] MEDS ORDERED: LEVO500T90 PO (10:46)
[2021-10-03] MEDS ORDERED: LORazepam 1 MG tablet PO PRN (18:50)
[2021-10-03] MEDS ORDERED: LORazepam 2 mg/ml vial IV PRN (18:50)
[2021-10-04] MEDS ORDERED: folic acid 1mg tablet PO SCH (08:00)
== END 2021-10-03 13:50 | disposition home or self-care (01) | DRG 720 ==
LOC: ER 13:00 → UNDOADMIN 18:58 → ED HOLD 18:58 → ORTHO 4S 22:20 → ED HOLD 22:20 → ORTHO 4S 09-30 16:30
PROVIDERS: ADMIT Family Medicine; ATTEND Family Medicine
DX: A41.9 Sepsis, unspecified organism (principal); N17.0 Acute kidney failure with tubular necrosis; K85.10 Biliary acute pancreatitis without necrosis or infection; K85.20 Alcohol induced acute pancreatitis without necrosis or infection; K70.10 Alcoholic hepatitis without ascites; E87.1 Hypo-osmolality and hyponatremia; D75.1 Secondary polycythemia; R74.01 Elevation of levels of liver transaminase levels; Z20.822 Contact with and (suspected) exposure to COVID-19; E86.0 Dehydration; E87.6 Hypokalemia; F10.239 Alcohol dependence with withdrawal, unspecified; K82.8 Other specified diseases of gallbladder; R56.9 Unspecified convulsions; F17.200 Nicotine dependence, unspecified, uncomplicated; Z90.49 Acquired absence of other specified parts of digestive tract; Z88.8 Allergy status to other drugs, medicaments and biological substances
CPT/HCPCS: 36415; 70450; 71045; 74176; 74181; 76700; 80053; 80305; 80320; 81001; 82150; 82948; 83605; 83690; 83735; 84100; 84132; 84145; 85007; 85025; 85610; 85730; 87040; 87081; 87635; 93005; 96372; 97116; 97161; 97530; 99285; C9803; G0378; J1630; J1953; J2060; J2270; J2405; J2543; J3411; J3480; J3490; J7030; J7042; J7120

== ENCOUNTER 2022-08-19 14:41 | Inpatient (IN) | payer MEDICAID ==
[~2022-08-19] VITALS: Ht 180.3 cm; Wt 66.9 kg
[~2022-08-19 14:41] MED LIST changes: -FAMO-128 PO; +NO HOME MEDS; -ONDA8TAB9 PO
[2022-08-19] MEDS ORDERED: thiamine 100mg/ml 2ml inj. IV ONE (22:55)
[2022-08-19] MEDS ORDERED: LORazepam 2 mg/ml vial IV ONE (22:55)
[2022-08-19 23:32] LABS: MEAN PLATELET VOLUME 9.4 FL (7.4-10.4); RED BLOOD COUNT 2.87 X10'6 (4.70-6.10); WHITE BLOOD COUNT 5.9 X10'3 (4.5-11.0)
[2022-08-19 23:34] LABS: HEMOGLOBIN 10.9 g/dl (14.0-17.9); MEAN CORPUSCULAR HEMOGLOBIN 37.9 PG (27.0-31.0); MEAN CORPUSCULAR HGB CONC 35.1 g/dL (33.0-36.5); MEAN CORPUSCULAR VOLUME 107.9 FL (78-98); PLATELET COUNT 111 X10'3 (140-440)
[2022-08-19 23:36] LABS: ALANINE AMINOTRANSFERASE 64 U/L (12-78); ALBUMIN 2.7 G/DL (3.4-5.0); ALKALINE PHOSPHATASE 308 IU/L (46-116); ANION GAP 8 (8-16); BILIRUBIN,TOTAL 10.6 MG/DL (0.1-1.0); BLOOD UREA NITROGEN 4 MG/DL (7-18); BUN/CREATININE RATIO 6.3 (5.4-32.0); CHLORIDE 97 MMOL/L (99-107); CREATININE 0.63 MG/DL (0.60-1.10); GLUCOSE 135 MG/DL (70-104); MAGNESIUM 1.4 MG/DL (1.5-2.4); SODIUM 131 MMOL/L (135-145); TOTAL CARBON DIOXIDE 26.5 MMOL/L (24-32); eGFR > 90 ML/MIN
[2022-08-19 23:45] LABS: PHOSPHORUS 2.2 MG/DL (2.3-4.5)
[2022-08-19 23:46] LABS: ALBUMIN/GLOBULIN RATIO 0.7 (1.1-1.5); ASPARTATE AMINO TRANSFERASE 233 U/L (10-37); ETHANOL < 0.010 GM/DL (0.0-0.010); TOTAL PROTEIN 6.5 G/DL (6.4-8.2)
[2022-08-19 23:49] LABS: POTASSIUM 4.1 MMOL/L (3.5-5.1)
--- NOTE | 2022-08-19 23:50 | NUR ---
Patient up and wandering ER at this time, patient going into rooms asking for a USB-C aco coordinator. Patient informed the other patients will not give him a USB-C aco coordinator. Patient directed back to his room. Patient watching video on his phone.
[2022-08-20] VITALS (24 sets, daily range): BP systolic 81–114; BP diastolic 48–78
--- NOTE | 2022-08-20 00:12 | NUR ---
pt trying to leave again, he is confused. Changed him into a gown and removed his clothes and shoes from the room and they are at the transmitter engineer in charge station. Warm blanket placed and lights off. Encouraged him to sleep because it is late.
[2022-08-20 00:29] LABS: ANISOCYTOSIS 1+; PLATELET ESTIMATE DECREASED; TOTAL CELLS COUNTED 100
[2022-08-20 00:32] LABS: LARGE PLATELETS FEW; TARGET CELLS 1+
[2022-08-20 00:33] LABS: POLYCHROMASIA FEW
--- NOTE | 2022-08-20 00:35 | NUR ---
Patient has removed all clothing but underwear, patient removed IV site from R AC, patient noted bleeding in room by play writer. Patient monitoring equipment replaced. Provider notified of mental status.
[2022-08-20] MEDS ORDERED: LORazepam 2 mg/ml vial IM ONE (00:45)
[2022-08-20] MEDS ORDERED: haloperidol lactate 5mg/ml inj IM ONE ×2 (00:45→04:45)
--- NOTE | 2022-08-20 00:54 | NUR ---
Pt wanting to leave again, pushed up against the tech. Pt taken into room 3 again. He wants to leave. made aware, medication ordered. Security summoned for standby assist. Pt trembling. Very anxious, upset. He sat on the bed, but than did stand. He does not know the year. Stated 2006, he did not know where he was. Than when asked again he said 2007 and was able to recall Nga since he was reoriented by me the first time. He stated he wanted to go home and get clothes and things and come back. He doesn't remember being in the hospital today. He denies this. He stated that 'this is a movie' He did want to call his mother, he has a cell phone, encouraged him to do so. He called his mom, he did put her on speaker phone. She was made aware of his confusion, wanting to leave and that he was going to be given medications, that security is at the doorway and if need be, he may need to be restrained. She understood. She states that he is very confused, to please do what is needed and keep him safe. He did take his injection. He is laying in bed with warmed blankets on him again.
--- NOTE | 2022-08-20 01:27 | NUR ---
Patient awake, eating a meal that was given to him. Patient otherwise seems calm.
--- NOTE | 2022-08-20 02:00 | NUR ---
Patient IV restarted. Patient placed back on cardiac, spo2, nibp monitoring. VS updated. Patient made aware what each device is for and why these are used. Patient frequently pulling at them, but has since left them alone, patient appears tired, suspect will fall sleep soon. Provider made awaware of elevated HR in low 120s. Advised NSS 1L.
[2022-08-20] MEDS ORDERED: normal saline 1000ml 1,000 ML IV ONE (02:05)
--- NOTE | 2022-08-20 03:34 | NUR ---
Client Success Specialist responded to patient currently with agitated episode. Patient noted in room removing all equipment, patient ripped IV apart, jumped up and had incontinent episode of stool and urine. Patient attempted to leave room to go to another patient room. Patient HR remains elevated in low 120s, patient continues with NSS bolus after IV extension change and IV dressing change. Bed linens were changed, patient changed into hospital underwear. Patient is unaware of location/place, time, does not answer self orientation questions.
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
[2022-08-20] MEDS ORDERED: diphenhydrAMINE 50 mg/ml inj IV ONE (04:00)
[2022-08-20] MEDS ORDERED: LORazepam 2 mg/ml vial IV ONE ×2 (04:00→04:45)
--- NOTE | 2022-08-20 04:07 | NUR ---
Patients mother (next of kin) notified per policy of patient placed in restraints. She was made aware of this then disconnected mid call, attempted to call her back, however phone went straight to voicemail.
--- NOTE | 2022-08-20 04:15 | NUR ---
Hospitalist paged to assess patient and recommend ongoing medical management and worsening agitative state.
--- NOTE | 2022-08-20 05:04 | NUR ---
Patient given ativan as recommended by hospitalist. Patient agitation and delerium continues to escalate, patient has removed 2nd IV from left hand, long IV started to left forearm to prevent removal. Patient is not able to have coherent conversation.
--- NOTE | 2022-08-20 05:10 | NUR ---
Dr Santana was contacted for [facility] protocol and she told me to transfer the case to the game warden, whom I spoke to, and he states that she needs to call him for admission. She will be recontacted so she can call him.
--- NOTE | 2022-08-20 05:13 | NUR ---
Hospitalist called for ongoing patient deterioration. Pending call back or ER visit.
--- NOTE | 2022-08-20 05:16 | NUR ---
Patient status worsening, hospitalist called, spoke to provider who advised intubation.
[2022-08-20] MEDS ORDERED: succinylcholine 20mg/ml inj IV ONE ×2 (05:25→05:35)
[2022-08-20] MEDS ORDERED: etomidate 2mg/ml inj. IV ONE (05:35)
[2022-08-20] MEDS: propofol 1000mg/100ml bottle 100 ML IV SCH ×4 (05:42→23:25)
[2022-08-20] MEDS ORDERED: fentaNYL/PF 50MCG/1 ML 2ML syringe IV ONE (06:45)
[2022-08-20] MEDS ORDERED: fentaNYL/PF 50MCG/1 ML 2ML syringe IV PRN (06:45)
[2022-08-20] MEDS ORDERED: FENTANYL-0.9 % NACL/PF 100 ML IV PRN (06:45)
[2022-08-20 07:02] LABS: TRIGLYCERIDES 176 MG/DL (20-135)
--- NOTE | 2022-08-20 08:04 | NUR ---
PT MOTHER, WHOM IS NEXT OF KIN WAS UPDATED ON PT STATUS AND ADMISSION TO ICU AT THIS TIME.
--- NOTE | 2022-08-20 11:15 | NUR ---
report received from brionna in er- pt transferred to room 2015 by bed
[2022-08-20] MEDS: dextrose 5%-1/2 normal saline 1,000 ML IV SCH (14:02)
--- NOTE | 2022-08-20 15:00 | NUR ---
pt woke with severe agitation- unable to calm or reorient him- fentanyl gtt increased and diprivan bolus given- effective. sbp 80's to 90's- map in 60's
[2022-08-20] MEDS: folic acid 1mg/0.2ml inj IV SCH (17:52)
[2022-08-20] MEDS: fentaNYL 50mcg/ml PF inj. 2,500 MCG in normal saline 250ml IV soln 200 ML IV PRN (19:42)
[2022-08-20] MEDS ORDERED: normal saline 1000ml 1,000 ML IVB ONE (22:25)
[2022-08-20] MEDS: dextrose 5%-normal saline 1,000 ML IV SCH (22:25)
--- NOTE | 2022-08-20 22:30 | NUR ---
RN Note -Called Dr. Mcbride regarding fever and hypotension. Orders received.
[2022-08-20 23:35] LABS: CLARITY,URINE SLIGHTLY CLOUDY (Clear); COLOR,URINE AMBER (Yellow); GLUCOSE, URINE 100 mg/dl (Neg); KETONES,URINE TRACE mg/dl (Neg); LEUKOCYTE ESTERASE ,URINE TRACE (Neg); NITRITES, URINE NEGATIVE (Neg); OCCULT BLOOD,URINE NEGATIVE (Neg); PH,URINE 5.5 (4.8-8.0); PROTEIN,URINE NEGATIVE (Neg)
[2022-08-20 23:43] LABS: UA COLLECTION TYPE NON-SPECIFIED
[2022-08-21] VITALS (34 sets, daily range): BP systolic 79–98; BP diastolic 46–62
[2022-08-21 00:18] LABS: RBC,URINE NONE SEEN /HPF (0-2); WBC,URINE 0-4 /HPF (0-4)
[2022-08-21 00:19] LABS: BACTERIA,URINE NONE SEEN /HPF (Neg); SQUAMOUS EPITHELIAL CELL,UR FEW /LPF (FEW)
[2022-08-21] MEDS: dextrose 5%-1/2 normal saline 1,000 ML IV SCH ×2 (00:46→07:25)
[2022-08-21 03:16] LABS: ABG BASE EXCESS -1.7 mmol/L (-2.0-2.0); ABG HCO3 22.3 mmol/L (22.0-26.0); ABG PCO2 (T) 34.9 mmHg (35.0-48.0); ABG PO2 (T) 74.4 mmHg (75.0-100.0); FCOHb 0.2 % (0.0-3.9); FMetHb 0.1 % (0.0-1.5); FO2Hb 94.7 % (94-97); PATIENT TEMPERATURE 36.9; PEEP 5 cm H2O; RESPIRATORY RATE 14 b/min; TIDAL VOLUME 475 mL; TOTAL HEMOGLOBIN 11.4 G/dl (14.0-17.9)
[2022-08-21] MEDS: propofol 1000mg/100ml bottle 100 ML IV SCH ×6 (03:27→20:47)
[2022-08-21] MEDS: fentaNYL 50mcg/ml PF inj. 2,500 MCG in normal saline 250ml IV soln 200 ML IV PRN ×2 (05:27→15:34)
[2022-08-21] MEDS: dextrose 5%-normal saline 1,000 ML IV SCH ×3 (06:25→23:55)
--- NOTE | 2022-08-21 06:30 | NUR ---
Patient in room CICU 2014. I have received report [place] [facility] and had the opportunity to ask questions and assume patient care.
--- NOTE | 2022-08-21 07:00 | NUR ---
temp increasing, esopageal temp probe to check bladder accuracy- same. pt opens eyes with care- easily agitated- obeys commands
[2022-08-21 08:21] LABS: WHITE BLOOD COUNT 6.9 X10'3 (4.5-11.0)
[2022-08-21 08:22] LABS: HEMATOCRIT 31.7 % (42.0-52.0); HEMOGLOBIN 10.7 g/dl (14.0-17.9); MEAN CORPUSCULAR HGB CONC 33.7 g/dL (33.0-36.5); MEAN PLATELET VOLUME 9.6 FL (7.4-10.4); PLATELET COUNT 116 X10'3 (140-440); RED CELL DISTRIBUTION WIDTH 17.3 % (11.5-14.5)
--- NOTE | 2022-08-21 08:30 | NUR ---
numerous iv attempts , then placed- us guided. rt ac iv leaking and dcd. with rt turn- pt desatted- sx numerous times- thick secretions. on 100%, then titrated down over 30" to 50% to 92%
[2022-08-21 08:35] LABS: ALANINE AMINOTRANSFERASE 53 U/L (12-78); ALKALINE PHOSPHATASE 234 IU/L (46-116); AMYLASE 25 U/L (25-115); ANION GAP 9 (8-16); ASPARTATE AMINO TRANSFERASE 192 U/L (10-37); BILIRUBIN,TOTAL 9.5 MG/DL (0.1-1.0); BLOOD UREA NITROGEN 1 MG/DL (7-18); BUN/CREATININE RATIO 1.6 (5.4-32.0); CHLORIDE 101 MMOL/L (99-107); CREATININE 0.64 MG/DL (0.60-1.10); GLUCOSE 442 MG/DL (70-104); LIPASE < 50 U/L (73-393); MAGNESIUM 1.2 MG/DL (1.5-2.4); SODIUM 133 MMOL/L (135-145); TOTAL CARBON DIOXIDE 23.2 MMOL/L (24-32); eGFR > 90 ML/MIN
[2022-08-21] MEDS: folic acid 1mg/0.2ml inj IV SCH (08:38)
[2022-08-21 08:51] LABS: ALBUMIN/GLOBULIN RATIO 0.6 (1.1-1.5); PHOSPHORUS 2.7 MG/DL (2.3-4.5); TOTAL PROTEIN 5.2 G/DL (6.4-8.2); TRIGLYCERIDES 251 MG/DL (20-135)
[2022-08-21 08:56] LABS: ANISOCYTOSIS 1+; PLATELET ESTIMATE DECREASED; POLYCHROMASIA FEW; TARGET CELLS 1+; TOTAL CELLS COUNTED 100
[2022-08-21 08:57] LABS: STOMATOCYTES 1+
[2022-08-21 09:01] LABS: POTASSIUM 2.9 MMOL/L (3.5-5.1)
[2022-08-21 09:02] LABS: CALCIUM 7.1 MG/DL (8.5-10.1)
[2022-08-21] MEDS ORDERED: magnesium 4gm in 100ml NS 100 ML IV ONE (09:10)
[2022-08-21] MEDS ORDERED: potassium CL 10mEq/100ml bag 100 ML IV PRN (09:10)
[2022-08-21] MEDS ORDERED: potassium Cl 40MEQ/1/2NS 520ml 520 ML IV PRN (09:25)
[2022-08-21] MEDS ORDERED: potassium Cl 40MEQ/1/2NS 520ml 520 ML IV ONE ×2 (09:30→13:30)
--- NOTE | 2022-08-21 11:16 | NUR ---
call to md josé manuel main, vern rojo and replacing
--- NOTE | 2022-08-21 12:03 | NUR ---
Initial: Pt admit for EtOH w/d and intubated to protect airway d/t delirium tremens leading to ALOC/agitation/combative behavior. Per EMR pt with an OGT in place though no TF consult at this time. Per verbal d/w physician will initiate nutrition support tomorrow if pt unable to be extubated. Noted pt with D5-1/2NS running at 85 mL/hr and Propofol visualized at bedside to be running at 19.5 mL/hr providing a combined total of 862 kcal/day. Pt just recently admitted and was eating well, documented with 100% PO intake on regular diet lunch 08/18 to 08/19 prior to leaving [facility]. Pt currently receiving routine Thiamine, Folic acid, and Vitamin B12 for EtOH. Recommend initiating routine MVI as well. Will continue to follow closely. Recommendations: 1) IF TF and Propofol at 19.5 mL/hr (515 kcal/day) and D5 discontinued, continuous Vital HP with 60 mL/hr goal via OGT 2) Monitor Propofol rate and need to adjust recs; IF no Propofol or D5, continuous Vital AF with 65 mL/hr goal rate 3) IF TF, prealbumin q Tuesday/; daily scaled weights 4) Advance to regular diet as medically indicated following extubation 5) Continue routine Thiamine, Folic acid, and Vitamin B12 for EtOH hx; consider the addition of routine MVI 6) Routine bowel care Addendum: 08/21/22 at [address] Amended: Links added.
[2022-08-21] MEDS ORDERED: levoFLOXACIN-Levaquin 750MG/D5 150 ML IV STA (13:12)
[2022-08-21] MEDS ORDERED: CefTRIAXone/D5W-Rocephin 1gm 50 ML IV ONE (13:15)
[2022-08-21] MEDS: pantoprazole 40MG/NS 100ML BAG 100 ML IV SCH (14:12)
[2022-08-21] MEDS: cyanocobalamin 500mcg tablet PO SCH (14:26)
[2022-08-21] MEDS: thiamine 100mg/ml 2ml inj. IV SCH (14:27)
--- NOTE | 2022-08-21 14:51 | NUR ---
call to re ivf and cl status.- message left
[2022-08-21] MEDS ORDERED: normal saline 1000ml 1,000 ML IVB ONE (17:05)
[2022-08-21 18:00] LABS: MAGNESIUM 2.2 MG/DL (1.5-2.4)
[2022-08-21 18:02] LABS: POTASSIUM 3.6 MMOL/L (3.5-5.1)
[2022-08-21] MEDS ORDERED: risperiDONE 2mg tablet PO ONE (22:25)
--- NOTE | 2022-08-21 22:30 | NUR ---
RN Note -Called Dr. Mcbride regarding agitation requiring multiple boluses of sedation. Orders received.
[2022-08-21] MEDS: haloperidol 5mg tablet PO PRN (23:05)
[2022-08-22] VITALS (32 sets, daily range): BP systolic 65–102; BP diastolic 42–62
[2022-08-22] MEDS: propofol 1000mg/100ml bottle 100 ML IV SCH ×3 (00:07→08:58)
[2022-08-22] MEDS: fentaNYL 50mcg/ml PF inj. 2,500 MCG in normal saline 250ml IV soln 200 ML IV PRN ×2 (00:07→09:56)
[2022-08-22] MEDS: haloperidol 5mg tablet PO PRN ×2 (01:43→08:53)
[2022-08-22 02:38] LABS: HEMATOCRIT 27.6 % (42.0-52.0); HEMOGLOBIN 9.2 g/dl (14.0-17.9); MEAN CORPUSCULAR HEMOGLOBIN 37.9 PG (27.0-31.0); MEAN CORPUSCULAR HGB CONC 33.3 g/dL (33.0-36.5); MEAN CORPUSCULAR VOLUME 113.7 FL (78-98); MEAN PLATELET VOLUME 9.7 FL (7.4-10.4); PLATELET COUNT 101 X10'3 (140-440); RED BLOOD COUNT 2.43 X10'6 (4.70-6.10)
[2022-08-22 02:46] LABS: ALANINE AMINOTRANSFERASE 45 U/L (12-78); ALBUMIN 1.6 G/DL (3.4-5.0); ALKALINE PHOSPHATASE 172 IU/L (46-116); AMYLASE 23 U/L (25-115); ANION GAP 6 (8-16); ASPARTATE AMINO TRANSFERASE 147 U/L (10-37); BILIRUBIN,TOTAL 7.7 MG/DL (0.1-1.0); BLOOD UREA NITROGEN 0 MG/DL (7-18); CALCIUM 7.4 MG/DL (8.5-10.1); CHLORIDE 109 MMOL/L (99-107); GLUCOSE 113 MG/DL (70-104); LIPASE < 50 U/L (73-393); SODIUM 138 MMOL/L (135-145); TOTAL CARBON DIOXIDE 22.8 MMOL/L (24-32); eGFR > 90 ML/MIN
[2022-08-22 02:49] LABS: ALBUMIN/GLOBULIN RATIO 0.6 (1.1-1.5); PHOSPHORUS 2.6 MG/DL (2.3-4.5); POTASSIUM 3.9 MMOL/L (3.5-5.1); TOTAL PROTEIN 4.5 G/DL (6.4-8.2)
[2022-08-22] MEDS ORDERED: potassium Cl 40MEQ/1/2NS 520ml 520 ML IV PRN (03:30)
[2022-08-22 03:39] LABS: ABG HCO3 20.1 mmol/L (22.0-26.0); ABG PCO2 (T) 38.4 mmHg (35.0-48.0); ABG PO2 (T) 97.1 mmHg (75.0-100.0); ALLEN'S TEST Modified; FCOHb 0.3 % (0.0-3.9); FMetHb 0.2 % (0.0-1.5); FO2Hb 96.5 % (94-97); PATIENT TEMPERATURE 37.6; PEEP 5 cm H2O; RESPIRATORY RATE 14 b/min; TIDAL VOLUME 475 mL; TOTAL HEMOGLOBIN 10.4 G/dl (14.0-17.9)
--- NOTE | 2022-08-22 03:45 | NUR ---
RN Note -Called Dr. Mcbride regarding labs. No new orders received, potassium protocol in place.
[2022-08-22 04:05] LABS: PLATELET ESTIMATE DECREASED; SMUDGE CELLS 1+; TOTAL CELLS COUNTED 100
[2022-08-22 04:06] LABS: ANISOCYTOSIS 1+; POLYCHROMASIA 1+
[2022-08-22 04:07] LABS: TARGET CELLS 1+
[2022-08-22 04:08] LABS: STOMATOCYTES 2+
[2022-08-22] MEDS ORDERED: potassium Cl 40MEQ/270ML bag 270 ML IV PRN (06:25)
[2022-08-22] MEDS: pantoprazole 40MG/NS 100ML BAG 100 ML IV SCH (07:06)
[2022-08-22] MEDS: folic acid 1mg/0.2ml inj IV SCH (07:41)
[2022-08-22] MEDS: CefTRIAXone/D5W-Rocephin 1gm 50 ML IV SCH (07:41)
[2022-08-22] MEDS: dextrose 5%-normal saline 1,000 ML IV SCH ×3 (07:55→23:55)
[2022-08-22] MEDS: cyanocobalamin 500mcg tablet PO SCH (08:52)
[2022-08-22] MEDS: thiamine 100mg/ml 2ml inj. IV SCH (08:53)
[2022-08-22] MEDS: levoFLOXACIN-Levaquin 750MG/D5 150 ML IV SCH (08:53)
[2022-08-22] MEDS: dexmedetomidin/NS 400mcg/100ml 100 ML IV PRN ×2 (10:12→20:44)
--- NOTE | 2022-08-22 14:24 | NUR ---
bp 65/[address] Mcbride ordered fluid bolus (in progress) levophed if needed after bolus
--- NOTE | 2022-08-22 18:15 | NUR ---
Patient in room CICU 2014. I have received report from JAN Buregr in the ER and had the opportunity to ask questions and assume patient care. Patient was sleeping, but woke easily and was appropriate. I will continue to monitor.
--- NOTE | 2022-08-22 20:15 | NUR ---
Patient found out of bed, confused and paranoid. Dr. Mcbride was called and her ordered Ativan 4mg IV once, also restart Precedex.
[2022-08-22] MEDS ORDERED: LORazepam 2 mg/ml vial IV ONE (20:20)
--- NOTE | 2022-08-22 20:42 | NUR ---
Spoke to pts mom. She voiced concerns regarding pts confusion and pts ability to make safe decisions. Assure mother that safety measures were in place including but not limited to bed alarm, within sight of nursing staff and medication as needed. I assured her that pts is being reoriented to time and place as needed.
--- NOTE | 2022-08-22 22:10 | NUR ---
Patient refusing oxygen, continues to pullout nasal cannula
[2022-08-23] VITALS (15 sets, daily range): BP systolic 77–96; BP diastolic 47–65
[2022-08-23] MEDS: dextrose 5%-normal saline 1,000 ML IV SCH ×3 (01:51→23:49)
[2022-08-23 06:10] LABS: HEMOGLOBIN 9.8 g/dl (14.0-17.9); MEAN PLATELET VOLUME 9.6 FL (7.4-10.4)
[2022-08-23 06:13] LABS: HEMATOCRIT 29.6 % (42.0-52.0); MEAN CORPUSCULAR HEMOGLOBIN 37.9 PG (27.0-31.0); MEAN CORPUSCULAR HGB CONC 33.3 g/dL (33.0-36.5); MEAN CORPUSCULAR VOLUME 113.8 FL (78-98); PLATELET COUNT 111 X10'3 (140-440); RED CELL DISTRIBUTION WIDTH 16.6 % (11.5-14.5); WHITE BLOOD COUNT 4.7 X10'3 (4.5-11.0)
--- NOTE | 2022-08-23 06:27 | NUR ---
Problems reprioritized. Patient report given, questions answered & plan of care reviewed with JAN Calderon.
[2022-08-23 06:45] LABS: ALANINE AMINOTRANSFERASE 40 U/L (12-78); ALBUMIN 1.4 G/DL (3.4-5.0); ALKALINE PHOSPHATASE 155 IU/L (46-116); AMYLASE 9 U/L (25-115); ANION GAP 6 (8-16); ASPARTATE AMINO TRANSFERASE 127 U/L (10-37); BILIRUBIN,TOTAL 7.2 MG/DL (0.1-1.0); BLOOD UREA NITROGEN 0 MG/DL (7-18); CALCIUM 7.7 MG/DL (8.5-10.1); CHLORIDE 111 MMOL/L (99-107); GLUCOSE 158 MG/DL (70-104); MAGNESIUM 1.7 MG/DL (1.5-2.4); SODIUM 139 MMOL/L (135-145); TOTAL CARBON DIOXIDE 22.2 MMOL/L (24-32); eGFR > 90 ML/MIN
--- NOTE | 2022-08-23 06:58 | NUR ---
Patient in room CICU 2014. I have received report from Leila MONTOYA and had the opportunity to ask questions and assume patient care.
[2022-08-23 07:05] LABS: ABG BASE EXCESS 0.8 mmol/L (-2.0-2.0); ABG HCO3 22.9 mmol/L (22.0-26.0); ABG OXYGEN SATURATION 99.1 % (94-97); ABG PCO2 (T) 28.2 mmHg (35.0-48.0); ABG PO2 (T) 160.5 mmHg (75.0-100.0); ALLEN'S TEST Modified; FCOHb 0.3 % (0.0-3.9); FMetHb 0.3 % (0.0-1.5); FO2Hb 98.5 % (94-97); PEEP 5 cm H2O; RESPIRATORY RATE 18 b/min; TIDAL VOLUME 472 mL; TOTAL HEMOGLOBIN 10.2 G/dl (14.0-17.9)
[2022-08-23 07:09] LABS: ALBUMIN/GLOBULIN RATIO 0.4 (1.1-1.5); LIPASE < 50 U/L (73-393); PHOSPHORUS 2.6 MG/DL (2.3-4.5); POTASSIUM 3.3 MMOL/L (3.5-5.1); TOTAL PROTEIN 4.6 G/DL (6.4-8.2); TRIGLYCERIDES 182 MG/DL (20-135)
[2022-08-23 07:17] LABS: ANISOCYTOSIS 1+; LARGE PLATELETS FEW; PLATELET ESTIMATE DECREASED; STOMATOCYTES 2+; TOTAL CELLS COUNTED 100
[2022-08-23] MEDS ORDERED: levetiracetam inj 1,000 MG in normal saline 100ml IV soln 100 ML IV SCH (08:00)
[2022-08-23] MEDS: levoFLOXACIN-Levaquin 750MG/D5 150 ML IV SCH (08:10)
[2022-08-23] MEDS: thiamine 100mg/ml 2ml inj. IV SCH (08:11)
[2022-08-23] MEDS: pantoprazole 40MG/NS 100ML BAG 100 ML IV SCH (08:11)
[2022-08-23] MEDS: cyanocobalamin 500mcg tablet PO SCH (08:12)
[2022-08-23] MEDS: folic acid 1mg/0.2ml inj IV SCH (08:12)
[2022-08-23] MEDS: CefTRIAXone/D5W-Rocephin 1gm 50 ML IV SCH (08:12)
[2022-08-23] MEDS: dexmedetomidin/NS 400mcg/100ml 100 ML IV PRN (08:12)
[2022-08-23] MEDS ORDERED: potassium Cl 40MEQ/1/2NS 520ml 520 ML IV PRN (09:15)
[2022-08-23] MEDS ORDERED: magnesium Cl slow-release 64mg tablet PO PRN (09:15)
[2022-08-23] MEDS ORDERED: potassium Cl 20 mEq SR tablet PO PRN ×2 (09:15)
[2022-08-23] MEDS ORDERED: magnesium 4gm in 100ml NS 100 ML IV PRN (09:15)
[2022-08-23] MEDS: POTASSIUM BICARB 20meq eff tab 20 MEQ TABLET.EFF PO PRN ×3 (11:02→23:52)
--- NOTE | 2022-08-23 11:05 | NUR ---
F/u 08/23: Pt extubated yesterday remains NPO w/ ALOC PO diet to advance once more aware and passes RN BSS per electronic sales and service technician at rounds. Recommend advancing to regular diet if passes BSS. Recommendations: 1) Advance to regular diet as medically indicated following extubation 2) Monitor initial PO acceptance for ONS needs once diet advances 3) Continue routine Thiamine, Folic acid, and Vitamin B12 for EtOH hx; consider the addition of routine MVI 4) Routine bowel care 5) Weekly wts Addendum: 08/23/22 at [address] Amended: Links added.
--- NOTE | 2022-08-23 11:57 | NUR ---
Paged Dr Fontaine: Walker 09. Pt coming from [facility], no tele ordered. Pt has been in restraints since 08/20 and there are no current orders. I will try without restraints, may I have an order just in case? Joanne [phone]
--- NOTE | 2022-08-23 12:07 | NUR ---
Patient report given with tele nurse Joanne MONTOYA. Patient transferred to room 3009 with sitter at bedside.
--- NOTE | 2022-08-23 12:19 | NUR ---
Informed mother Elin over the phone about patient transferring to room 3009.
--- NOTE | 2022-08-23 13:07 | NUR ---
Restraints ordered, pt sleeping. Will not apply unless pt becomes combative to self or others. RN to monitor. Sitter at bedside and seizure pads placed on bed. Pt jaundiced. YUNI scores negative at the moment. Addendum: 08/23/22 at 1309 by Joanne Coyle RN Pt in room for ~45minutes without RN notification
[2022-08-23] MEDS: K and/or MAG REPLACEMENT MC SCH (20:00)
[2022-08-24 02:00] VITALS: BP 98/54
--- NOTE | 2022-08-24 06:38 | NUR ---
Received report from [facility] shift RN pt cooperative and not combative overnight. No restraints applied. RN will continue to monitor for appropriateness to d/c restraints.
--- NOTE | 2022-08-24 06:41 | NUR ---
Paged Dr Fontaine: Travis [phone]. Did you want a NH4 level with today's labs? Joanne [phone]
[2022-08-24 06:50] LABS: HEMATOCRIT 30.2 % (42.0-52.0); HEMOGLOBIN 10.4 g/dl (14.0-17.9)
[2022-08-24 06:53] LABS: MEAN CORPUSCULAR HEMOGLOBIN 38.4 PG (27.0-31.0); MEAN CORPUSCULAR HGB CONC 34.4 g/dL (33.0-36.5); MEAN CORPUSCULAR VOLUME 111.3 FL (78-98); PLATELET COUNT 139 X10'3 (140-440); RED BLOOD COUNT 2.71 X10'6 (4.70-6.10); RED CELL DISTRIBUTION WIDTH 15.9 % (11.5-14.5); WHITE BLOOD COUNT 5.8 X10'3 (4.5-11.0)
[2022-08-24 07:00] VITALS: BP 99/58
[2022-08-24 07:20] LABS: ALANINE AMINOTRANSFERASE 48 U/L (12-78); ALBUMIN 1.5 G/DL (3.4-5.0); ALBUMIN/GLOBULIN RATIO 0.5 (1.1-1.5); ALKALINE PHOSPHATASE 160 IU/L (46-116); AMYLASE 12 U/L (25-115); ANION GAP 8 (8-16); ASPARTATE AMINO TRANSFERASE 127 U/L (10-37); BILIRUBIN,TOTAL 6.8 MG/DL (0.1-1.0); BLOOD UREA NITROGEN 0 MG/DL (7-18); CALCIUM 8.1 MG/DL (8.5-10.1); CHLORIDE 111 MMOL/L (99-107); CREATININE 0.68 MG/DL (0.60-1.10); GLUCOSE 109 MG/DL (70-104); LIPASE < 50 U/L (73-393); MAGNESIUM 1.5 MG/DL (1.5-2.4); PHOSPHORUS 1.7 MG/DL (2.3-4.5); POTASSIUM 3.5 MMOL/L (3.5-5.1); SODIUM 142 MMOL/L (135-145); TOTAL CARBON DIOXIDE 23.2 MMOL/L (24-32); TOTAL PROTEIN 4.6 G/DL (6.4-8.2); eGFR > 90 ML/MIN
[2022-08-24 07:30] LABS: PLATELET ESTIMATE NORMAL; TOTAL CELLS COUNTED 100
[2022-08-24 07:31] LABS: STOMATOCYTES 2+
[2022-08-24] MEDS: folic acid 1mg/0.2ml inj IV SCH (08:00)
[2022-08-24] MEDS: K and/or MAG REPLACEMENT MC SCH ×2 (08:00→18:44)
[2022-08-24] MEDS: CefTRIAXone/D5W-Rocephin 1gm 50 ML IV SCH (08:22)
[2022-08-24] MEDS: pantoprazole 40MG/NS 100ML BAG 100 ML IV SCH (08:23)
[2022-08-24] MEDS: thiamine 100mg/ml 2ml inj. IV SCH (08:23)
[2022-08-24] MEDS: cyanocobalamin 500mcg tablet PO SCH (08:23)
[2022-08-24] MEDS: levoFLOXACIN-Levaquin 750MG/D5 150 ML IV SCH (08:24)
[2022-08-24] MEDS: dextrose 5%-normal saline 1,000 ML IV SCH ×3 (08:32→23:55)
--- NOTE | 2022-08-24 09:23 | NUR ---
F/u 08/24: Pt extubated 08/22 advanced to pureed/NTL yesterday and now SB6/thin diet per MILITARY LAWYER recs this AM. AOx1 w/ sitter and max meal assistance refused first meal though 100% second last night pending PO documentation today. LBM 08/20 without bowel regimen; ETTA paged MD regarding routine bowel care if agreeable. Receiving thiamine, folic acid, B12 for etoh. Will monitor for further PO acceptance and nutrition intervention needs. Recommendations: 1) Advance to regular diet as medically indicated; continue SB6/thin per MILITARY LAWYER recs; max assistance w/ meals-encourage PO 2) Monitor initial PO acceptance for ONS needs once diet advances 3) Continue routine Thiamine, Folic acid, and Vitamin B12 for EtOH hx; consider the addition of routine MVI 4) Routine bowel care 5) Weekly wts Addendum: 08/24/22 at [address] Amended: Links added.
--- NOTE | 2022-08-24 09:50 | NUR ---
Permission to speak with Mother Elin #[phone]. Answered all questions appropriately.
--- NOTE | 2022-08-24 10:29 | NUR ---
Pagegeovanny Fontaine: Travis 09. Pt w/o restraints for ~24H. Can d/c order, not sitter? Pt requesting Buddy to be d/c. Joanne [phone] Addendum: 08/24/22 at 1133 by Joanne Coyle RN BMx3, total linen change, pericare performed Addendum: 08/24/22 at 1333 by Joanne Coyle RN d/c restraint intervention; order , new order not needed
[2022-08-24 12:00] VITALS: BP 90/43
--- NOTE | 2022-08-24 13:10 | NUR ---
IS given to pt, education provided, pt performed teachback.
[2022-08-24 15:15] VITALS: BP 106/59
--- NOTE | 2022-08-24 15:53 | NUR ---
Paged Dr Zhen Robles 09. Pt c/o 12/27 pain from Zelaya. No PRN available and d/c zelaya orders not placed. Joanne [phone]
[2022-08-24] MEDS ORDERED: HYDROcodone/acetaminophen 5mg/325mg tablet PO PRN (15:55)
--- NOTE | 2022-08-24 16:47 | NUR ---
Buddy d/c per MD orders, pt expressed new pain 08/27 and "relief". Pt refused accuchecks and IVF. RN educated and will continue to monitor. Sufficient intake. MD notified.
[2022-08-24 18:00] VITALS: BP 103/66
[2022-08-24 22:00] VITALS: BP 104/72
[2022-08-25 02:00] VITALS: BP 100/68
[2022-08-25 06:00] VITALS: BP 102/74
--- NOTE | 2022-08-25 06:00 | NUR ---
Patient in room PCU 3009. I have received report from Francisca MONTOYA and had the opportunity to ask questions and assume patient care.Bedside report completed. Pt awake and orientated x4. Addendum: 08/25/22 at 0644 by Mckenzie Ambrocio RN Amended: Links added.
[2022-08-25 07:11] LABS: HEMATOCRIT 28.6 % (42.0-52.0); HEMOGLOBIN 9.7 g/dl (14.0-17.9); MEAN CORPUSCULAR HEMOGLOBIN 37.9 PG (27.0-31.0); MEAN CORPUSCULAR HGB CONC 33.8 g/dL (33.0-36.5); MEAN PLATELET VOLUME 8.8 FL (7.4-10.4); PLATELET COUNT 149 X10'3 (140-440); RED BLOOD COUNT 2.55 X10'6 (4.70-6.10); RED CELL DISTRIBUTION WIDTH 16.7 % (11.5-14.5); WHITE BLOOD COUNT 7.1 X10'3 (4.5-11.0)
[2022-08-25] MEDS: thiamine 100mg/ml 2ml inj. IV SCH (07:29)
[2022-08-25] MEDS: cyanocobalamin 500mcg tablet PO SCH (07:32)
[2022-08-25] MEDS: folic acid 1mg/0.2ml inj IV SCH (07:32)
[2022-08-25] MEDS: CefTRIAXone/D5W-Rocephin 1gm 50 ML IV SCH (07:35)
[2022-08-25] MEDS: levoFLOXACIN-Levaquin 750MG/D5 150 ML IV SCH (07:35)
[2022-08-25] MEDS: pantoprazole 40MG/NS 100ML BAG 100 ML IV SCH (07:35)
[2022-08-25] MEDS: dextrose 5%-normal saline 1,000 ML IV SCH ×3 (07:55→23:55)
[2022-08-25] MEDS: K and/or MAG REPLACEMENT MC SCH ×2 (08:00→20:13)
[2022-08-25 08:09] LABS: ALANINE AMINOTRANSFERASE 47 U/L (12-78); ALBUMIN 1.6 G/DL (3.4-5.0); ALKALINE PHOSPHATASE 156 IU/L (46-116); AMYLASE 13 U/L (25-115); ANION GAP 7 (8-16); ASPARTATE AMINO TRANSFERASE 116 U/L (10-37); BILIRUBIN,TOTAL 7.8 MG/DL (0.1-1.0); BLOOD UREA NITROGEN 1 MG/DL (7-18); BUN/CREATININE RATIO 1.7 (5.4-32.0); CALCIUM 8.3 MG/DL (8.5-10.1); CHLORIDE 105 MMOL/L (99-107); CREATININE 0.59 MG/DL (0.60-1.10); GLUCOSE 103 MG/DL (70-104); LIPASE < 50 U/L (73-393); MAGNESIUM 1.3 MG/DL (1.5-2.4); SODIUM 135 MMOL/L (135-145); TOTAL CARBON DIOXIDE 22.8 MMOL/L (24-32); eGFR > 90 ML/MIN
[2022-08-25 08:12] LABS: ALBUMIN/GLOBULIN RATIO 0.5 (1.1-1.5); PHOSPHORUS 2.3 MG/DL (2.3-4.5); POTASSIUM 3.3 MMOL/L (3.5-5.1); TOTAL PROTEIN 4.7 G/DL (6.4-8.2)
[2022-08-25 08:29] LABS: TOTAL CELLS COUNTED 100
[2022-08-25 08:30] LABS: ANISOCYTOSIS 1+; PLATELET ESTIMATE NORMAL; STOMATOCYTES 2+
[2022-08-25 11:34] VITALS: BP 115/70
[2022-08-25 15:20] VITALS: BP 110/69
[2022-08-25 18:00] VITALS: BP 111/71
--- NOTE | 2022-08-25 18:18 | NUR ---
Problems reprioritized. Patient report given, questions answered & plan of care reviewed with Francisca MONTOYA. Bedside report completed. Pt resting. No distress. Addendum: 08/25/22 at 1819 by Mckenzie Ambrocio RN Amended: Links added.
[2022-08-25] MEDS: POTASSIUM BICARB 20meq eff tab 20 MEQ TABLET.EFF PO PRN (20:15)
[2022-08-26 02:00] VITALS: BP 112/72
[2022-08-26 06:00] VITALS: BP 104/64
--- NOTE | 2022-08-26 06:38 | NUR ---
Patient in room PCU 3009. I have received report from Francisca MONTOYA and had the opportunity to ask questions and assume patient care.Bedside report completed. Pt sleeping, Call light in reach. Addendum: 08/26/22 at 0639 by Mckenzie Ambrocio RN Amended: Links added.
[2022-08-26 07:47] LABS: TRIGLYCERIDES 152 MG/DL (20-135)
[2022-08-26] MEDS: folic acid 1mg/0.2ml inj IV SCH (09:05)
[2022-08-26] MEDS: CefTRIAXone/D5W-Rocephin 1gm 50 ML IV SCH (09:05)
[2022-08-26] MEDS: thiamine 100mg/ml 2ml inj. IV SCH (09:05)
[2022-08-26] MEDS: cyanocobalamin 500mcg tablet PO SCH (09:05)
[2022-08-26] MEDS: levoFLOXACIN-Levaquin 750MG/D5 150 ML IV SCH (09:06)
[2022-08-26] MEDS: pantoprazole 40MG/NS 100ML BAG 100 ML IV SCH (09:06)
[2022-08-26 09:07] LABS: ALANINE AMINOTRANSFERASE 46 U/L (12-78); ALBUMIN 1.7 G/DL (3.4-5.0); ALKALINE PHOSPHATASE 173 IU/L (46-116); ANION GAP 10 (8-16); ASPARTATE AMINO TRANSFERASE 112 U/L (10-37); BLOOD UREA NITROGEN 2 MG/DL (7-18); BUN/CREATININE RATIO 3.1 (5.4-32.0); CALCIUM 8.2 MG/DL (8.5-10.1); CHLORIDE 103 MMOL/L (99-107); CREATININE 0.64 MG/DL (0.60-1.10); GLUCOSE 102 MG/DL (70-104); MAGNESIUM 1.4 MG/DL (1.5-2.4); SODIUM 135 MMOL/L (135-145); TOTAL CARBON DIOXIDE 22.1 MMOL/L (24-32); eGFR > 90 ML/MIN
[2022-08-26 09:09] LABS: ALBUMIN/GLOBULIN RATIO 0.5 (1.1-1.5); PHOSPHORUS 2.6 MG/DL (2.3-4.5); POTASSIUM 3.5 MMOL/L (3.5-5.1)
[2022-08-26 09:22] LABS: MEAN CORPUSCULAR HGB CONC 34.3 g/dL (33.0-36.5)
[2022-08-26 09:24] LABS: HEMATOCRIT 29.6 % (42.0-52.0); HEMOGLOBIN 10.2 g/dl (14.0-17.9); MEAN CORPUSCULAR HEMOGLOBIN 37.9 PG (27.0-31.0); MEAN CORPUSCULAR VOLUME 110.3 FL (78-98); MEAN PLATELET VOLUME 8.4 FL (7.4-10.4); PLATELET COUNT 152 X10'3 (140-440); RED BLOOD COUNT 2.68 X10'6 (4.70-6.10); RED CELL DISTRIBUTION WIDTH 16.4 % (11.5-14.5); WHITE BLOOD COUNT 7.7 X10'3 (4.5-11.0)
[2022-08-26 10:13] LABS: ANISOCYTOSIS 1+; PLATELET ESTIMATE NORMAL; TOTAL CELLS COUNTED 100
[2022-08-26 10:14] LABS: STOMATOCYTES 1+
[2022-08-26] MEDS ORDERED: FOLI1TAB27 PO (10:22)
[2022-08-26] MEDS ORDERED: MULT-1085 PO (10:22)
[2022-08-26] MEDS ORDERED: THIA50TA10 PO (10:22)
[2022-08-26] MEDS ORDERED: PANT-47 PO (10:22)
[2022-08-26] MEDS ORDERED: LACT1CAP26 PO (10:22)
[2022-08-26] MEDS ORDERED: LEVO750T68 PO (10:22)
[2022-08-26 11:00] VITALS: BP 113/72
--- NOTE | 2022-08-26 12:20 | NUR ---
All written and verbal orders for d/c given. All questions answered. Pt stated he had all belongings including cell phone and cryogenics repairer. Home with mother. Addendum: 08/26/22 at 1251 by Mckenzie Ambrocio RN Amended: Links added.
== END 2022-08-26 12:20 | disposition home or self-care (01) | DRG 133 ==
LOC: ER 14:42 → ED HOLD 08-20 01:18 → CICU 2S 08-20 11:26 → PCU 3S 08-23 11:57
PROVIDERS: ADMIT Internal Medicine; ATTEND Family Medicine
PROC: 5A1945Z Respiratory Ventilation, 24-96 Consecutive Hours (ICD-10-PCS; principal; 2022-08-20)
PROC: 0BH17EZ Insertion of Endotracheal Airway into Trachea, Via Natural or Artificial Opening (ICD-10-PCS; 2022-08-20)
DX: J96.00 Acute respiratory failure, unspecified whether with hypoxia or hypercapnia (principal); J69.0 Pneumonitis due to inhalation of food and vomit; R34 Anuria and oliguria; F10.231 Alcohol dependence with withdrawal delirium; E46 Unspecified protein-calorie malnutrition; I95.9 Hypotension, unspecified; D69.6 Thrombocytopenia, unspecified; E87.1 Hypo-osmolality and hyponatremia; N17.9 Acute kidney failure, unspecified; K70.10 Alcoholic hepatitis without ascites; Z20.822 Contact with and (suspected) exposure to COVID-19; E87.6 Hypokalemia; R50.9 Fever, unspecified; D53.9 Nutritional anemia, unspecified; G40.909 Epilepsy, unspecified, not intractable, without status epilepticus; F17.210 Nicotine dependence, cigarettes, uncomplicated; Z90.49 Acquired absence of other specified parts of digestive tract; Z78.1 Physical restraint status; Z68.20 Body mass index [BMI] 20.0-20.9, adult
CPT/HCPCS: 36415; 36600; 71045; 80053; 80320; 81001; 82140; 82150; 82803; 82948; 83605; 83690; 83735; 84100; 84132; 84145; 84478; 85007; 85018; 85025; 85610; 87040; 87070; 87077; 87081; 87088; 87186; 87811; 92508; 92616; 93005; 94002; 94003; 94640; 94760; 94799; 96372; 96374; 96375; 97116; 97161; 97530; 99291; A4615; A6258; A6449; C1751; C9113; G0378; J0330; J0696; J1200; J1630; J1956; J2060; J2704; J3010; J3411; J3475; J3480; J3490; J7030; J7040; J7042; J7050

== ENCOUNTER 2023-09-28 19:16 | Inpatient (IN) | payer MEDICAID ==
[~2023-09-28] VITALS: Ht 180.3 cm; Wt 65.9 kg
[~2023-09-28 19:16] MED LIST changes: +FOLI1TAB27 PO; +LACT1CAP26 PO; +MULT-1085 PO; -NO HOME MEDS; +PANT-47 PO; +THIA50TA10 PO
[2023-09-28 21:14] LABS: INR 2.5 INR; PROTHROMBIN TIME 24.6 SECONDS (9.0-12.0)
[2023-09-28 21:17] LABS: ALANINE AMINOTRANSFERASE 47 U/L (12-78); ALBUMIN 1.8 G/DL (3.4-5.0); ALKALINE PHOSPHATASE 184 IU/L (46-116); ANION GAP 16 (8-16); BILIRUBIN,TOTAL 23.9 MG/DL (0.1-1.0); BLOOD UREA NITROGEN 4 MG/DL (7-18); BUN/CREATININE RATIO 7.8 (10.0-20.0); CALCIUM 7.9 MG/DL (8.5-10.1); CHLORIDE 90 MMOL/L (99-107); CREATININE 0.51 MG/DL (0.60-1.10); LIPASE 18 U/L (16-77); SODIUM 129 MMOL/L (135-145); TOTAL CARBON DIOXIDE 22.7 MMOL/L (24-32); eCRCL 186 ML/MIN; eGFR > 90 ML/MIN
[2023-09-28] MEDS: thiamine 100mg/ml 2ml inj. IV ONE (21:45)
[2023-09-28] MEDS: folic acid 1mg/0.2ml inj IV ONE (21:45)
[2023-09-28 21:46] LABS: HEMATOCRIT 22.6 % (42.0-52.0); MEAN CORPUSCULAR HEMOGLOBIN 38.4 PG (27.0-31.0); MEAN CORPUSCULAR HGB CONC 35.3 g/dL (33.0-36.5); MEAN CORPUSCULAR VOLUME 108.7 FL (78-98); PLATELET COUNT 94 X10'3 (140-440); RED BLOOD COUNT 2.08 X10'6 (4.70-6.10); RED CELL DISTRIBUTION WIDTH 15.2 % (11.5-14.5); WHITE BLOOD COUNT 8.3 X10'3 (4.5-11.0)
[2023-09-28] MEDS ORDERED: iohexol 300mg/ml 100ml inj. ONE (21:48)
[2023-09-28 22:10] LABS: PLATELET ESTIMATE DECREASED; TOTAL CELLS COUNTED 100
[2023-09-28 22:11] LABS: STOMATOCYTES 1+; TARGET CELLS FEW
[2023-09-28 22:16] LABS: ALBUMIN/GLOBULIN RATIO 0.4 (1.1-1.5); ASPARTATE AMINO TRANSFERASE 284 U/L (10-37); GLUCOSE 112 MG/DL (70-104); TOTAL PROTEIN 6.8 G/DL (6.4-8.2)
[2023-09-28 22:18] LABS: POTASSIUM 2.3 MMOL/L (3.5-5.1)
[2023-09-28 22:19] LABS: ACETAMINOPHEN < 2.0 UG/ML (10-30)
[2023-09-28] MEDS ORDERED: DOCU-148 PO (22:40)
[2023-09-28] MEDS: magnesium 2GM in 50ml NS 50 ML IV ONE (22:42)
[2023-09-28] MEDS: normal saline 1000ml 1,000 ML IV ONE (22:43)
[2023-09-28] MEDS: potassium Cl 40MEQ/1/2NS 520ml 520 ML IV SCH (22:44)
[2023-09-29] MEDS ORDERED: magnesium 2GM in 50ml NS 50 ML IV PRN (00:05)
[2023-09-29] MEDS ORDERED: ondansetron/PF 4mg/2ml inj IV PRN (00:05)
[2023-09-29] MEDS ORDERED: morphine 2 MG/ML inj. syringe IV PRN (00:05)
[2023-09-29] MEDS ORDERED: magnesium hydroxide 30ml (MOM) UD suspension PO PRN (00:05)
[2023-09-29] MEDS ORDERED: mag hydrox/Alum hydrox/simeth 30ml oral suspension PO PRN (00:05)
[2023-09-29] MEDS ORDERED: acetaminophen 325mg tablet PO PRN (00:05)
[2023-09-29] MEDS ORDERED: magnesium 4gm in 100ml NS 100 ML IV PRN (00:05)
[2023-09-29] MEDS ORDERED: dextrose 50%-water 50ml dispensing syringe IV PRN ×2 (00:05→16:40)
[2023-09-29] MEDS ORDERED: potassium Cl 20 mEq SR tablet PO PRN (00:05)
[2023-09-29] MEDS ORDERED: haloperidol 5mg tablet PO PRN (00:05)
[2023-09-29] MEDS ORDERED: magnesium Cl slow-release 64mg tablet PO PRN (00:05)
[2023-09-29 01:14] LABS: BILIRUBIN,URINE LARGE (Neg); CLARITY,URINE SLIGHTLY CLOUDY (Clear); COLOR,URINE AMBER (Yellow); GLUCOSE, URINE 100 mg/dl (Neg); KETONES,URINE 15 mg/dl (Neg); LEUKOCYTE ESTERASE ,URINE NEGATIVE (Neg); NITRITES, URINE NEGATIVE (Neg); OCCULT BLOOD,URINE NEGATIVE (Neg); PH,URINE 7.5 (4.8-8.0); PROTEIN,URINE NEGATIVE (Neg)
[2023-09-29 01:22] LABS: UA COLLECTION TYPE CLN CATCH MIDSTREAM
[2023-09-29 01:26] LABS: SQUAMOUS EPITHELIAL CELL,UR FEW /LPF (FEW)
[2023-09-29 01:29] LABS: TRANSITIONAL EPI CELLS,URINE FEW /HPF
[2023-09-29 01:33] LABS: RBC,URINE 0-2 /HPF (0-2)
[2023-09-29 01:46] LABS: RENAL CELLS, URINE FEW /HPF
[2023-09-29 01:48] LABS: WBC,URINE 0-4 /HPF (0-4)
[2023-09-29 01:53] LABS: BACTERIA,URINE FEW /HPF (Neg)
[2023-09-29 05:36] LABS: MAGNESIUM 1.8 MG/DL (1.5-2.4)
[2023-09-29] MEDS: docusate sod 100mg capsule PO SCH (08:00)
[2023-09-29 08:59] LABS: ALANINE AMINOTRANSFERASE 46 U/L (12-78); ALBUMIN 1.5 G/DL (3.4-5.0); ALKALINE PHOSPHATASE 154 IU/L (46-116); ANION GAP 14 (8-16); BILIRUBIN,TOTAL 22.1 MG/DL (0.1-1.0); CALCIUM 7.4 MG/DL (8.5-10.1); CHLORIDE 93 MMOL/L (99-107); CREATININE 0.41 MG/DL (0.60-1.10); SODIUM 128 MMOL/L (135-145); TOTAL CARBON DIOXIDE 21.1 MMOL/L (24-32); eCRCL 231 ML/MIN; eGFR > 90 ML/MIN
[2023-09-29 09:00] LABS: ALBUMIN/GLOBULIN RATIO 0.3 (1.1-1.5); ASPARTATE AMINO TRANSFERASE 242 U/L (10-37); BLOOD UREA NITROGEN 3 MG/DL (7-18); BUN/CREATININE RATIO 7.3 (10.0-20.0); GLUCOSE 102 MG/DL (70-104); TOTAL PROTEIN 5.9 G/DL (6.4-8.2)
[2023-09-29 09:33] VITALS: PULSE 98; RESP 18; O2SAT 98
[2023-09-29] MEDS: pantoprazole 40 MG vial IV SCH (09:51)
[2023-09-29] MEDS: CefTRIAXone/D5W-Rocephin 1gm 50 ML IV SCH (09:51)
[2023-09-29] MEDS: thiamine 100mg/ml 2ml inj. IV SCH ×2 (09:51→20:55)
[2023-09-29] MEDS: predniSONE 20 mg tablet PO SCH ×2 (09:54→13:00)
[2023-09-29] MEDS: sincalide inj 1.3 MCG in normal saline 100ml IV soln 100 ML IV ONE (10:00)
[2023-09-29] MEDS: folic acid 1mg/0.2ml inj IV SCH ×2 (10:00→16:40)
[2023-09-29] MEDS: spironolactone 25 MG tablet PO SCH (11:30)
[2023-09-29] MEDS: propranolol 40mg tablet PO SCH (11:31)
[2023-09-29] MEDS: K and/or MAG REPLACEMENT MC SCH (11:32)
[2023-09-29] MEDS: potassium Cl 40MEQ/1/2NS 520ml 520 ML IV PRN (11:58)
[2023-09-29 12:13] LABS: BILIRUBIN,DIRECT 18.4 MG/DL (0-0.3)
[2023-09-29] MEDS: lactose-reduced food (Ensure High Protein) 237ml bottle PO SCH (13:00)
[2023-09-29 13:30] VITALS: BP 96/55; PULSE 105; RESP 18; TEMP 98.1; O2SAT 99
[2023-09-29] MEDS: LORazepam 2 mg/ml vial IV PRN (15:25)
[2023-09-29] MEDS: thiamine 100mg/ml 2ml inj. IV ONE (15:26)
[2023-09-29] MEDS: lactulose 20gm/30ml cup PO SCH (16:24)
[2023-09-29] MEDS: dextrose 5%-1/2 normal saline 1,000 ML IV SCH (16:29)
[2023-09-29 18:00] VITALS: BP 97/56; PULSE 112; RESP 16; TEMP 97.7; O2SAT 99
[2023-09-29] MEDS: Ursodiol 300mg capsule PO SCH (19:50)
[2023-09-29] MEDS: potassium Cl 20 mEq SR tablet PO PRN (19:59)
[2023-09-29 20:00] VITALS: RESP 16; O2SAT 97
[2023-09-29 21:40] VITALS: BP 115/76; PULSE 115; RESP 16; RESP 26; TEMP 98.6; O2SAT 96; O2SAT 97
[2023-09-29] MEDS: haloperidol lactate 5mg/ml inj IM PRN (22:32)
[2023-09-30] VITALS (12 sets, daily range): BP systolic 85–128; BP diastolic 49–80; PULSE 91–111; RESP 14–22; TEMP 97.7–98.9; O2SAT 90–96
[2023-09-30] MEDS: ringers solution, lacted 1,000 ML IV SCH (02:17)
[2023-09-30] MEDS: haloperidol lactate 5mg/ml inj IM PRN (04:01)
[2023-09-30 07:06] LABS: BASOPHILS % (AUTO) 0.7 % (0-1); EOSINOPHILS % (AUTO) 0 % (0-6); HEMOGLOBIN 7.3 g/dl (14.0-17.9); LYMPHOCYTES # (AUTO) 0.5 X10'3 (1.1-4.8); LYMPHOCYTES % (AUTO) 8.3 % (21-51); MEAN CORPUSCULAR HEMOGLOBIN 38.5 PG (27.0-31.0); MEAN CORPUSCULAR HGB CONC 34.3 g/dL (33.0-36.5); MEAN PLATELET VOLUME 9.1 FL (7.4-10.4); MONOCYTES # (AUTO) 0.7 X10'3 (0-0.9); MONOCYTES % (AUTO) 11.6 % (2-12); NEUTROPHILS % (AUTO) 79.4 % (42-75); PLATELET COUNT 89 X10'3 (140-440); RED BLOOD COUNT 1.89 X10'6 (4.70-6.10); RED CELL DISTRIBUTION WIDTH 15.3 % (11.5-14.5); WHITE BLOOD COUNT 6.3 X10'3 (4.5-11.0)
[2023-09-30 07:18] LABS: HEMATOCRIT 21.2 % (42.0-52.0)
[2023-09-30 07:24] LABS: ALANINE AMINOTRANSFERASE 41 U/L (12-78); ALBUMIN 1.5 G/DL (3.4-5.0); ALKALINE PHOSPHATASE 142 IU/L (46-116); ANION GAP 9 (8-16); BLOOD UREA NITROGEN 4 MG/DL (7-18); BUN/CREATININE RATIO 6.9 (10.0-20.0); CALCIUM 7.9 MG/DL (8.5-10.1); CHLORIDE 99 MMOL/L (99-107); CREATININE 0.58 MG/DL (0.60-1.10); HDL CHOLESTEROL 26 MG/DL (35-60); LDL CHOLESTEROL 57 MG/DL (50-100); MAGNESIUM 2.1 MG/DL (1.5-2.4); SODIUM 130 MMOL/L (135-145); TOTAL CARBON DIOXIDE 22.5 MMOL/L (24-32); eCRCL 166 ML/MIN; eGFR > 90 ML/MIN
[2023-09-30 07:27] LABS: ALBUMIN/GLOBULIN RATIO 0.3 (1.1-1.5); ASPARTATE AMINO TRANSFERASE 183 U/L (10-37); CHOL/HDL RATIO 3.1 (0.00-4.99); CHOLESTEROL 81 MG/DL (0-200); GLUCOSE 151 MG/DL (70-104); POTASSIUM 3.3 MMOL/L (3.5-5.1); TOTAL PROTEIN 5.9 G/DL (6.4-8.2); TRIGLYCERIDES 173 MG/DL (20-135)
[2023-09-30 07:53] LABS: HEMOGLOBIN A1C 4.2 % (4.5-6.2)
[2023-09-30 12:25] LABS: GLUCOSE,BODY FLUID 170 MG/DL; LDH,BODY FLUID 49 U/L
[2023-09-30 12:31] LABS: BFSOURCE PERITONEAL FLD; LYMPHOCYTES,BODY FLUID 67 %; MONOCYTES,BODY FLUID 30 %; NEUTROPHILS,BODY FLUID 3 %
[2023-09-30 12:32] LABS: BF MESOTHELIAL CELLS FEW; BF RBC COUNT 371 /CU MM; BF WBC COUNT 88 /CU MM (0-1000); BFAPPEAR HAZY; BFCOLOR YELLOW; BFVOLUME 52 ML
[2023-09-30 12:46] LABS: TOTAL PROTEIN,BODY FLUID < 2.0 G/DL
[2023-09-30 15:06] LABS: MEAN CORPUSCULAR HEMOGLOBIN 37.9 PG (27.0-31.0); MEAN CORPUSCULAR VOLUME 111.6 FL (78-98); MEAN PLATELET VOLUME 9.2 FL (7.4-10.4); PLATELET COUNT 96 X10'3 (140-440); RED BLOOD COUNT 1.85 X10'6 (4.70-6.10); RED CELL DISTRIBUTION WIDTH 15.5 % (11.5-14.5); WHITE BLOOD COUNT 5.9 X10'3 (4.5-11.0)
[2023-09-30 15:13] LABS: HEMATOCRIT 20.7 % (42.0-52.0)
[2023-09-30 15:21] LABS: INR 3.1 INR
[2023-09-30 15:40] LABS: C DIFF ANTIGEN SEE COMMENTS (NEGATIVE); C DIFF SPECIMEN=DIARRHEA? ACCEPTABLE; C DIFFICILE TOXINS A&B NEGATIVE (Neg)
[2023-09-30 15:43] LABS: OCCULT BLOOD STOOL NEGATIVE (Neg)
[2023-09-30] MEDS ORDERED: octreotide inj. 1,250 MCG in normal saline 250ml IV soln 243.75 ML IV SCH (17:30)
[2023-09-30] MEDS: octreotide inj. 500 MCG in normal saline 100ml IV soln 97.5 ML IV SCH (19:31)
[2023-09-30] MEDS: pantoprazole 40 MG vial IV SCH (19:31)
[2023-09-30] MEDS ORDERED: LORazepam 2 mg/ml vial IV PRN (22:40)
[2023-09-30] MEDS: LORazepam 2 mg/ml vial IV PRN (22:51)
[2023-09-30 23:22] LABS: HEMATOCRIT 23.1 % (42.0-52.0); HEMOGLOBIN 8.1 g/dl (14.0-17.9); MEAN CORPUSCULAR HGB CONC 35.2 g/dL (33.0-36.5); MEAN CORPUSCULAR VOLUME 105.2 FL (78-98); MEAN PLATELET VOLUME 8.5 FL (7.4-10.4); PLATELET COUNT 92 X10'3 (140-440); RED BLOOD COUNT 2.19 X10'6 (4.70-6.10); RED CELL DISTRIBUTION WIDTH 20.1 % (11.5-14.5); WHITE BLOOD COUNT 7.5 X10'3 (4.5-11.0)
[2023-10-01] VITALS (17 sets, daily range): BP systolic 79–107; BP diastolic 50–79; PULSE 75–103; RESP 14–20; TEMP 97.2–98; O2SAT 92–99
[2023-10-01] MEDS ORDERED: LORazepam 2 mg/ml vial IV PRN (00:05)
[2023-10-01] MEDS: LORazepam 1 MG tablet PO PRN (05:44)
[2023-10-01 07:15] LABS: BASOPHILS % (AUTO) 0.4 % (0-1); EOSINOPHILS % (AUTO) 0 % (0-6); HEMATOCRIT 23.1 % (42.0-52.0); LYMPHOCYTES # (AUTO) 0.9 X10'3 (1.1-4.8); LYMPHOCYTES % (AUTO) 12.6 % (21-51); MEAN CORPUSCULAR HEMOGLOBIN 36.7 PG (27.0-31.0); MEAN CORPUSCULAR HGB CONC 34.4 g/dL (33.0-36.5); MEAN CORPUSCULAR VOLUME 106.7 FL (78-98); MEAN PLATELET VOLUME 8.7 FL (7.4-10.4); MONOCYTES # (AUTO) 0.9 X10'3 (0-0.9); MONOCYTES % (AUTO) 12.1 % (2-12); NEUTROPHILS # (AUTO) 5.6 X10'3 (1.8-7.7); NEUTROPHILS % (AUTO) 74.9 % (42-75); PLATELET COUNT 97 X10'3 (140-440); RED BLOOD COUNT 2.17 X10'6 (4.70-6.10); RED CELL DISTRIBUTION WIDTH 20.9 % (11.5-14.5); WHITE BLOOD COUNT 7.5 X10'3 (4.5-11.0)
[2023-10-01] MEDS: PERFLUTREN PROTEIN-A MICROSPHR (Optison) 0.22 MG/ML 3ML VIAL IV ONE (07:15)
[2023-10-01] MEDS: octreotide 100mcg/1 ml ampule IV ONE (07:15)
[2023-10-01 07:41] LABS: ALANINE AMINOTRANSFERASE 38 U/L (12-78); ALBUMIN 1.4 G/DL (3.4-5.0); ALKALINE PHOSPHATASE 124 IU/L (46-116); ANION GAP 7 (8-16); BILIRUBIN,TOTAL 22.6 MG/DL (0.1-1.0); BLOOD UREA NITROGEN 4 MG/DL (7-18); BUN/CREATININE RATIO 6.7 (10.0-20.0); CALCIUM 7.5 MG/DL (8.5-10.1); CHLORIDE 105 MMOL/L (99-107); SODIUM 136 MMOL/L (135-145); TOTAL CARBON DIOXIDE 23.8 MMOL/L (24-32); eCRCL 160 ML/MIN; eGFR > 90 ML/MIN
[2023-10-01 07:42] LABS: ALBUMIN/GLOBULIN RATIO 0.4 (1.1-1.5); ASPARTATE AMINO TRANSFERASE 125 U/L (10-37); GLUCOSE 141 MG/DL (70-104); POTASSIUM 3.4 MMOL/L (3.5-5.1); TOTAL PROTEIN 5.4 G/DL (6.4-8.2)
[2023-10-01] MEDS ORDERED: docusate sod 100mg capsule PO PRN (07:55)
[2023-10-01] MEDS: LORazepam 2 mg/ml vial IV PRN (09:42)
[2023-10-01] MEDS: propranolol 40mg tablet PO SCH (10:13)
[2023-10-01] MEDS: spironolactone 25 MG tablet PO SCH (10:14)
[2023-10-01] MEDS: pantoprazole 40mg Tablet.DR PO SCH (10:14)
[2023-10-01] MEDS: ringers solution, lacted 1,000 ML IV SCH (10:15)
[2023-10-01] MEDS: VANCOMYCIN 125 MG/5 ML oral SOLN.RECON 5mL UD syringe (FIRVANQ) PO SCH (10:15)
[2023-10-01 10:57] LABS: PLATELET ESTIMATE DECREASED
[2023-10-01 10:58] LABS: ANISOCYTOSIS 3+; POLYCHROMASIA FEW; TARGET CELLS FEW
[2023-10-01] MEDS ORDERED: LIDOcaine 2% Viscous 15ml cup ONE (11:57)
[2023-10-01] MEDS ORDERED: fentaNYL/PF 50MCG/1 ML 2ML syringe ONE (11:57)
[2023-10-01] MEDS ORDERED: MIDAZolam 1 MG/ML 5ML VIAL ONE (11:57)
[2023-10-01] MEDS: pantoprazole 40 MG vial IV SCH (14:14)
[2023-10-01] MEDS: rifaximin 550mg tablet PO SCH (14:17)
[2023-10-01] MEDS: morphine 2 MG/ML inj. syringe IV PRN (19:48)
[2023-10-01] MEDS: lactulose 20gm/30ml cup PO SCH (19:53)
[2023-10-01 21:21] LABS: HBSAG SCREEN Negative (Negative); HEP A AB, IGM Negative (Negative); HEP B CORE AB, IGM Negative (Negative); HEP B CORE AB, TOT Negative (Negative); HEPATITIS C VIRUS ANTIBODY Non Reactive (Non Reactive)
[2023-10-02] VITALS (7 sets, daily range): BP systolic 83–98; BP diastolic 49–68; PULSE 66–77; RESP 14–16; TEMP 97.1; O2SAT 97–98
[2023-10-02 07:11] LABS: BASOPHILS % (AUTO) 0.1 % (0-1); EOSINOPHILS % (AUTO) 0 % (0-6); HEMOGLOBIN 9.4 g/dl (14.0-17.9); LYMPHOCYTES # (AUTO) 2.8 X10'3 (1.1-4.8); LYMPHOCYTES % (AUTO) 43.4 % (21-51); MEAN CORPUSCULAR HEMOGLOBIN 36.5 PG (27.0-31.0); MEAN CORPUSCULAR HGB CONC 33.6 g/dL (33.0-36.5); MEAN CORPUSCULAR VOLUME 108.4 FL (78-98); MEAN PLATELET VOLUME 8.8 FL (7.4-10.4); MONOCYTES # (AUTO) 0.3 X10'3 (0-0.9); MONOCYTES % (AUTO) 5.1 % (2-12); NEUTROPHILS # (AUTO) 3.4 X10'3 (1.8-7.7); NEUTROPHILS % (AUTO) 51.4 % (42-75); PLATELET COUNT 98 X10'3 (140-440); RED BLOOD COUNT 2.58 X10'6 (4.70-6.10); WHITE BLOOD COUNT 6.5 X10'3 (4.5-11.0)
[2023-10-02 07:43] LABS: ALANINE AMINOTRANSFERASE 37 U/L (12-78); ALBUMIN 1.3 G/DL (3.4-5.0); ALKALINE PHOSPHATASE 131 IU/L (46-116); ANION GAP 6 (8-16); BILIRUBIN,TOTAL 24.9 MG/DL (0.1-1.0); BLOOD UREA NITROGEN 5 MG/DL (7-18); CALCIUM 7.4 MG/DL (8.5-10.1); CHLORIDE 105 MMOL/L (99-107); SODIUM 136 MMOL/L (135-145); TOTAL CARBON DIOXIDE 24.6 MMOL/L (24-32)
[2023-10-02 07:44] LABS: ALBUMIN/GLOBULIN RATIO 0.3 (1.1-1.5); ASPARTATE AMINO TRANSFERASE 112 U/L (10-37); BUN/CREATININE RATIO 11.6 (10.0-20.0); CREATININE 0.43 MG/DL (0.60-1.10); GLUCOSE 138 MG/DL (70-104); POTASSIUM 3.9 MMOL/L (3.5-5.1); TOTAL PROTEIN 5.7 G/DL (6.4-8.2); eCRCL 224 ML/MIN; eGFR > 90 ML/MIN
[2023-10-02 07:50] LABS: ANISOCYTOSIS 3+; BURR CELLS FEW; PLATELET ESTIMATE DECREASED; TARGET CELLS FEW
[2023-10-02] MEDS: multivitamins, therapeutics tablet PO SCH (08:14)
[2023-10-02 16:41] LABS: AFP,SERUM, TUMOR MARKER 1.9 ng/mL (0.0-6.9)
[2023-10-03] MEDS ORDERED: LORazepam 2 mg/ml vial IV PRN (00:05)
[2023-10-03] MEDS ORDERED: LORazepam 1 MG tablet PO PRN (00:05)
[2023-10-03 06:00] VITALS: BP 82/54; PULSE 66; RESP 12; O2SAT 95
[2023-10-03 06:45] LABS: BASOPHILS % (AUTO) 0.3 % (0-1); EOSINOPHILS % (AUTO) 0 % (0-6); HEMATOCRIT 28.9 % (42.0-52.0); HEMOGLOBIN 9.8 g/dl (14.0-17.9); LYMPHOCYTES # (AUTO) 0.9 X10'3 (1.1-4.8); LYMPHOCYTES % (AUTO) 9.5 % (21-51); MEAN CORPUSCULAR HEMOGLOBIN 36.7 PG (27.0-31.0); MEAN CORPUSCULAR HGB CONC 33.9 g/dL (33.0-36.5); MEAN CORPUSCULAR VOLUME 108.5 FL (78-98); MEAN PLATELET VOLUME 9.1 FL (7.4-10.4); MONOCYTES # (AUTO) 1.2 X10'3 (0-0.9); MONOCYTES % (AUTO) 12.7 % (2-12); NEUTROPHILS # (AUTO) 7.3 X10'3 (1.8-7.7); NEUTROPHILS % (AUTO) 77.5 % (42-75); PLATELET COUNT 117 X10'3 (140-440); RED BLOOD COUNT 2.66 X10'6 (4.70-6.10); RED CELL DISTRIBUTION WIDTH 20.5 % (11.5-14.5); WHITE BLOOD COUNT 9.4 X10'3 (4.5-11.0)
[2023-10-03 07:02] LABS: ALANINE AMINOTRANSFERASE 40 U/L (12-78); ALBUMIN 1.4 G/DL (3.4-5.0); ALKALINE PHOSPHATASE 133 IU/L (46-116); ANION GAP 5 (8-16); BILIRUBIN,TOTAL 24.8 MG/DL (0.1-1.0); BLOOD UREA NITROGEN 7 MG/DL (7-18); CALCIUM 7.9 MG/DL (8.5-10.1); CHLORIDE 102 MMOL/L (99-107); MAGNESIUM 1.9 MG/DL (1.5-2.4); SODIUM 134 MMOL/L (135-145)
[2023-10-03 07:10] LABS: ALBUMIN/GLOBULIN RATIO 0.3 (1.1-1.5); ASPARTATE AMINO TRANSFERASE 104 U/L (10-37); BUN/CREATININE RATIO 15.9 (10.0-20.0); CREATININE 0.44 MG/DL (0.60-1.10); GLUCOSE 139 MG/DL (70-104); PHOSPHORUS 2.7 MG/DL (2.3-4.5); POTASSIUM 3.7 MMOL/L (3.5-5.1); TOTAL PROTEIN 5.8 G/DL (6.4-8.2); eCRCL 218 ML/MIN; eGFR > 90 ML/MIN
[2023-10-03 08:00] VITALS: RESP 12; O2SAT 95
[2023-10-03] MEDS ORDERED: thiamine 100mg tablet PO SCH (08:00)
[2023-10-03] MEDS: folic acid 1mg tablet PO SCH (09:30)
[2023-10-03] MEDS: thiamine 100mg tablet PO SCH (09:32)
[2023-10-03 10:00] VITALS: BP 92/62; PULSE 75; RESP 15; TEMP 95.5; O2SAT 97
[2023-10-03 15:50] VITALS: BP 83/55; PULSE 61; RESP 16; TEMP 96.5; O2SAT 97
[2023-10-03 18:00] VITALS: BP 81/52; PULSE 73; RESP 14; TEMP 96.8; O2SAT 98
[2023-10-03] MEDS: pantoprazole 40mg Tablet.DR PO SCH (21:21)
[2023-10-03 22:00] VITALS: BP 86/58; PULSE 73; RESP 18; TEMP 96; O2SAT 100
[2023-10-04 05:57] VITALS: BP 87/52; PULSE 77; RESP 16; TEMP 97.6; O2SAT 96
[2023-10-04 07:10] LABS: BASOPHILS # (AUTO) 0.1 X10'3 (0-0.2); BASOPHILS % (AUTO) 0.7 % (0-1); EOSINOPHILS % (AUTO) 0.1 % (0-6); HEMATOCRIT 28.4 % (42.0-52.0); HEMOGLOBIN 9.8 g/dl (14.0-17.9); LYMPHOCYTES # (AUTO) 1.4 X10'3 (1.1-4.8); LYMPHOCYTES % (AUTO) 12.9 % (21-51); MEAN CORPUSCULAR HEMOGLOBIN 37.3 PG (27.0-31.0); MEAN CORPUSCULAR HGB CONC 34.6 g/dL (33.0-36.5); MEAN CORPUSCULAR VOLUME 107.6 FL (78-98); MEAN PLATELET VOLUME 9.1 FL (7.4-10.4); MONOCYTES # (AUTO) 1.9 X10'3 (0-0.9); MONOCYTES % (AUTO) 17.8 % (2-12); NEUTROPHILS # (AUTO) 7.3 X10'3 (1.8-7.7); NEUTROPHILS % (AUTO) 68.5 % (42-75); PLATELET COUNT 134 X10'3 (140-440); RED BLOOD COUNT 2.63 X10'6 (4.70-6.10); WHITE BLOOD COUNT 10.7 X10'3 (4.5-11.0)
[2023-10-04 07:24] LABS: ALANINE AMINOTRANSFERASE 46 U/L (12-78); ALBUMIN 1.4 G/DL (3.4-5.0); ALKALINE PHOSPHATASE 132 IU/L (46-116); ANION GAP 6 (8-16); BILIRUBIN,TOTAL 23.8 MG/DL (0.1-1.0); BLOOD UREA NITROGEN 8 MG/DL (7-18); CALCIUM 7.9 MG/DL (8.5-10.1); CHLORIDE 103 MMOL/L (99-107); SODIUM 135 MMOL/L (135-145); TOTAL CARBON DIOXIDE 26.1 MMOL/L (24-32)
[2023-10-04 07:30] LABS: ALBUMIN/GLOBULIN RATIO 0.3 (1.1-1.5); ASPARTATE AMINO TRANSFERASE 102 U/L (10-37); CREATININE 0.47 MG/DL (0.60-1.10); GLUCOSE 105 MG/DL (70-104); PHOSPHORUS 3.1 MG/DL (2.3-4.5); TOTAL PROTEIN 5.6 G/DL (6.4-8.2); eCRCL 204 ML/MIN; eGFR > 90 ML/MIN
[2023-10-04 08:00] VITALS: RESP 16; O2SAT 96
[2023-10-04] MEDS ORDERED: folic acid 1mg tablet PO SCH (08:00)
[2023-10-04 08:24] LABS: ANISOCYTOSIS 2+; PLATELET ESTIMATE DECREASED; TOTAL CELLS COUNTED 100
[2023-10-04 08:25] LABS: BURR CELLS FEW; TARGET CELLS FEW; TEAR DROP CELLS FEW
[2023-10-04] MEDS ORDERED: magnesium 4gm in 100ml NS 100 ML IV PRN (10:55)
[2023-10-04] MEDS ORDERED: potassium Cl 40MEQ/1/2NS 520ml 520 ML IV PRN (10:55)
[2023-10-04] MEDS ORDERED: magnesium 2GM in 50ml NS 50 ML IV PRN (10:55)
[2023-10-04] MEDS ORDERED: magnesium Cl slow-release 64mg tablet PO PRN (10:55)
[2023-10-04] MEDS: potassium Cl 20 mEq SR tablet PO PRN (11:26)
[2023-10-04] MEDS: normal saline 1000ml 1,000 ML IV SCH (11:35)
[2023-10-04 13:35] LABS: INR 2.3 INR; PROTHROMBIN TIME 22.9 SECONDS (9.0-12.0)
[2023-10-04 14:00] VITALS: BP 84/57; PULSE 76; RESP 18; O2SAT 98
[2023-10-04] MEDS ORDERED: albumin (Human) 5% 250ml 250 ML IV ONE (16:05)
[2023-10-04] MEDS ORDERED: albumin (human) 25% 100ml IV 100 ML in dextrose 5% water 500ml 400 ML IV ONE (16:05)
[2023-10-04] MEDS: albumin (Human) 5% 250ml 250 ML IV ONE (16:31)
[2023-10-04 17:00] VITALS: BP 99/62; PULSE 80
[2023-10-04] MEDS: lactose-reduced food (Ensure Enlive) - 237ml bottle PO SCH (18:01)
[2023-10-04] MEDS: K and/or MAG REPLACEMENT MC SCH (20:00)
[2023-10-04 22:00] VITALS: BP 100/70; PULSE 76; RESP 16; TEMP 98.4; O2SAT 96
[2023-10-05 06:00] VITALS: BP 98/72; PULSE 72; RESP 15; TEMP 98.2; O2SAT 98
[2023-10-05] MEDS: midodrine tablet 2.5 MG TABLET PO SCH ×2 (07:47→22:53)
[2023-10-05 09:08] LABS: C-REACTIVE PROTEIN 1.43 MG/DL (0.0-0.5)
[2023-10-05 09:09] LABS: PHOSPHORUS 2.9 MG/DL (2.3-4.5)
[2023-10-05 10:00] VITALS: BP 97/42; PULSE 88; RESP 16; TEMP 98.2; O2SAT 100
[2023-10-05 12:36] LABS: BASOPHILS % (AUTO) 0.4 % (0-1); EOSINOPHILS # (AUTO) 0.1 X10'3 (0-0.9); EOSINOPHILS % (AUTO) 0.6 % (0-6); HEMATOCRIT 25.5 % (42.0-52.0); HEMOGLOBIN 8.9 g/dl (14.0-17.9); LYMPHOCYTES # (AUTO) 1.1 X10'3 (1.1-4.8); MEAN CORPUSCULAR HEMOGLOBIN 37.2 PG (27.0-31.0); MEAN CORPUSCULAR HGB CONC 34.7 g/dL (33.0-36.5); MEAN CORPUSCULAR VOLUME 107.1 FL (78-98); MEAN PLATELET VOLUME 8.6 FL (7.4-10.4); MONOCYTES # (AUTO) 1.7 X10'3 (0-0.9); MONOCYTES % (AUTO) 19.8 % (2-12); NEUTROPHILS # (AUTO) 5.9 X10'3 (1.8-7.7); NEUTROPHILS % (AUTO) 67.2 % (42-75); PLATELET COUNT 110 X10'3 (140-440); RED BLOOD COUNT 2.38 X10'6 (4.70-6.10); RED CELL DISTRIBUTION WIDTH 18.9 % (11.5-14.5); WHITE BLOOD COUNT 8.8 X10'3 (4.5-11.0)
[2023-10-05 12:43] LABS: INR 2.3 INR
[2023-10-05 12:47] LABS: ALANINE AMINOTRANSFERASE 35 U/L (12-78); ALBUMIN 1.5 G/DL (3.4-5.0); ALKALINE PHOSPHATASE 120 IU/L (46-116); ANION GAP 7 (8-16); BILIRUBIN,TOTAL 24.5 MG/DL (0.1-1.0); BLOOD UREA NITROGEN 7 MG/DL (7-18); CALCIUM 7.7 MG/DL (8.5-10.1); CHLORIDE 104 MMOL/L (99-107); SODIUM 136 MMOL/L (135-145); TOTAL CARBON DIOXIDE 25.2 MMOL/L (24-32)
[2023-10-05 12:50] LABS: ALBUMIN/GLOBULIN RATIO 0.4 (1.1-1.5); ASPARTATE AMINO TRANSFERASE 92 U/L (10-37); BUN/CREATININE RATIO 12.7 (10.0-20.0); CREATININE 0.55 MG/DL (0.60-1.10); GLUCOSE 153 MG/DL (70-104); PHOSPHORUS 2.7 MG/DL (2.3-4.5); POTASSIUM 3.3 MMOL/L (3.5-5.1); TOTAL PROTEIN 5.3 G/DL (6.4-8.2); eCRCL 175 ML/MIN; eGFR > 90 ML/MIN
[2023-10-05] MEDS: potassium Cl 20 mEq SR tablet PO PRN (14:09)
[2023-10-05 14:37] LABS: TOTAL CELLS COUNTED 100
[2023-10-05 14:38] LABS: ANISOCYTOSIS 2+; PLATELET ESTIMATE DECREASED
[2023-10-05 14:39] LABS: BURR CELLS FEW
[2023-10-05 14:40] LABS: TARGET CELLS FEW
[2023-10-05 18:00] VITALS: BP 86/51; PULSE 78; RESP 16; TEMP 99.2; O2SAT 94
[2023-10-05 22:00] VITALS: BP 89/59; PULSE 71; RESP 14; TEMP 98.1; O2SAT 99
[2023-10-05 23:47] VITALS: BP 93/62
[2023-10-06 06:30] VITALS: BP 98/63; PULSE 81; RESP 16; TEMP 97.5; O2SAT 98
[2023-10-06 06:41] LABS: INR 2.1 INR; PROTHROMBIN TIME 21.7 SECONDS (9.0-12.0)
[2023-10-06 06:46] LABS: ALANINE AMINOTRANSFERASE 47 U/L (12-78); ALBUMIN 1.4 G/DL (3.4-5.0); ALKALINE PHOSPHATASE 123 IU/L (46-116); ANION GAP 7 (8-16); BILIRUBIN,TOTAL 23.9 MG/DL (0.1-1.0); BLOOD UREA NITROGEN 8 MG/DL (7-18); CALCIUM 7.6 MG/DL (8.5-10.1); CHLORIDE 102 MMOL/L (99-107); LIPASE 26 U/L (16-77); MAGNESIUM 2.2 MG/DL (1.5-2.4); SODIUM 133 MMOL/L (135-145); TOTAL CARBON DIOXIDE 24.5 MMOL/L (24-32)
[2023-10-06 06:47] LABS: ALBUMIN/GLOBULIN RATIO 0.4 (1.1-1.5); ASPARTATE AMINO TRANSFERASE 104 U/L (10-37); BUN/CREATININE RATIO 18.2 (10.0-20.0); CREATININE 0.44 MG/DL (0.60-1.10); GLUCOSE 145 MG/DL (70-104); PHOSPHORUS 3.1 MG/DL (2.3-4.5); POTASSIUM 4.1 MMOL/L (3.5-5.1); TOTAL PROTEIN 5.4 G/DL (6.4-8.2); eCRCL 218 ML/MIN; eGFR > 90 ML/MIN
[2023-10-06 08:10] LABS: BASOPHILS # (AUTO) 0.1 X10'3 (0-0.2); BASOPHILS % (AUTO) 0.6 % (0-1); EOSINOPHILS # (AUTO) 0.1 X10'3 (0-0.9); EOSINOPHILS % (AUTO) 0.6 % (0-6); HEMATOCRIT 25.5 % (42.0-52.0); HEMOGLOBIN 8.7 g/dl (14.0-17.9); LYMPHOCYTES # (AUTO) 1.6 X10'3 (1.1-4.8); MEAN CORPUSCULAR HEMOGLOBIN 36.2 PG (27.0-31.0); MEAN CORPUSCULAR VOLUME 106.5 FL (78-98); MEAN PLATELET VOLUME 8.9 FL (7.4-10.4); MONOCYTES # (AUTO) 2.1 X10'3 (0-0.9); MONOCYTES % (AUTO) 20.2 % (2-12); NEUTROPHILS # (AUTO) 6.7 X10'3 (1.8-7.7); NEUTROPHILS % (AUTO) 63.6 % (42-75); PLATELET COUNT 117 X10'3 (140-440); RED BLOOD COUNT 2.39 X10'6 (4.70-6.10); RED CELL DISTRIBUTION WIDTH 18.3 % (11.5-14.5); WHITE BLOOD COUNT 10.5 X10'3 (4.5-11.0)
[2023-10-06 08:44] LABS: ANISOCYTOSIS 2+; PLATELET ESTIMATE DECREASED; TOTAL CELLS COUNTED 100
[2023-10-06 08:45] LABS: BURR CELLS FEW; ELLIPTOCYTES FEW; TEAR DROP CELLS FEW
[2023-10-06 10:00] VITALS: BP_SYST 94; BP_DIAS 54; BP_DIAS 56; PULSE 86; RESP 14; TEMP 98.4; O2SAT 98
[2023-10-06] MEDS ORDERED: RIFA550T PO (12:12)
[2023-10-06] MEDS ORDERED: MULT-1085 PO (12:12)
[2023-10-06] MEDS ORDERED: FOLI1TAB27 PO (12:12)
[2023-10-06] MEDS ORDERED: THIA50TA10 PO (12:12)
[2023-10-06] MEDS ORDERED: PANT-47 PO (12:12)
[2023-10-06] MEDS ORDERED: PROP40TA72 PO (12:12)
[2023-10-06] MEDS ORDERED: URSO300C2 PO (12:12)
[2023-10-06] MEDS ORDERED: LACT10SO7 PO (12:12)
[2023-10-06] MEDS ORDERED: LACT1CAP26 PO (12:12)
[2023-10-06] MEDS ORDERED: VANC25SO PO (12:12)
[2023-10-06] MEDS ORDERED: SPIR25TA PO (12:12)
[2023-10-06] MEDS ORDERED: PRED10TA23 PO ×2 (12:12→14:50)
== END 2023-10-06 13:44 | disposition home health service (06) | DRG 280 ==
LOC: ER 19:16 → ED HOLD 09-29 00:14 → EDBEDREQ 09-29 10:57 → ORTHO 4S 09-29 13:51
PROVIDERS: ADMIT Internal Medicine Sleep Medicine; ATTEND Family Medicine
PROC: BW211ZZ Computerized Tomography (CT Scan) of Abdomen and Pelvis using Low Osmolar Contrast (ICD-10-PCS; 2023-09-28)
PROC: 0W9G3ZZ Drainage of Peritoneal Cavity, Percutaneous Approach (ICD-10-PCS; principal; 2023-09-30)
PROC: 30233N1 Transfusion of Nonautologous Red Blood Cells into Peripheral Vein, Percutaneous Approach (ICD-10-PCS; 2023-09-30)
PROC: 0DJ08ZZ Inspection of Upper Intestinal Tract, Via Natural or Artificial Opening Endoscopic (ICD-10-PCS; 2023-10-01)
DX: K70.11 Alcoholic hepatitis with ascites (principal); K70.40 Alcoholic hepatic failure without coma; G93.41 Metabolic encephalopathy; E43 Unspecified severe protein-calorie malnutrition; A04.72 Enterocolitis due to Clostridium difficile, not specified as recurrent; K76.6 Portal hypertension; D69.6 Thrombocytopenia, unspecified; I27.20 Pulmonary hypertension, unspecified; I85.10 Secondary esophageal varices without bleeding; E83.51 Hypocalcemia; K70.31 Alcoholic cirrhosis of liver with ascites; E87.1 Hypo-osmolality and hyponatremia; E87.8 Other disorders of electrolyte and fluid balance, not elsewhere classified; K31.89 Other diseases of stomach and duodenum; D50.0 Iron deficiency anemia secondary to blood loss (chronic); E87.6 Hypokalemia; K80.10 Calculus of gallbladder with chronic cholecystitis without obstruction; F10.139 Alcohol abuse with withdrawal, unspecified; E88.09 Other disorders of plasma-protein metabolism, not elsewhere classified; R74.01 Elevation of levels of liver transaminase levels; F17.210 Nicotine dependence, cigarettes, uncomplicated; K86.1 Other chronic pancreatitis; Z68.20 Body mass index [BMI] 20.0-20.9, adult; Z88.8 Allergy status to other drugs, medicaments and biological substances; Z79.899 Other long term (current) drug therapy; Z90.49 Acquired absence of other specified parts of digestive tract
CPT/HCPCS: 36415; 36430; 43235; 49083; 71045; 74177; 74181; 76700; 80053; 80061; 80074; 80329; 81001; 82103; 82140; 82248; 82272; 82945; 82948; 83036; 83615; 83690; 83735; 84100; 84132; 84145; 84157; 85007; 85008; 85025; 85027; 85610; 85651; 86140; 86704; 86885; 86900; 86901; 86920; 87070; 87075; 87077; 87081; 87186; 87324; 87449; 89051; 93306; 94760; 97116; 97161; 97530; 99152; 99285; A4349; A4620; A6258; A6590; C9113; G0378; J0696; J1630; J2060; J2250; J2270; J2354; J3010; J3411; J3475; J3480; J3490; J7030; J7040; J7070; J7120; J7512; P9016; P9045; Q9967

== ENCOUNTER 2023-10-26 05:59 | Day surgery (SDC) | payer MEDICAID ==
[~2023-10-26] VITALS: Ht 180.3 cm; Wt 67.8 kg
[~2023-10-26 05:59] MED LIST changes: +DOCU-148 PO; +LACT10SO3 PO; -MULT-1085 PO; +MULT-1249 PO; -PANT-47 PO; +PANT40TA54 PO; +PROP40TA72 PO; +RIFA550T PO; +SPIR25TA5 PO; -THIA50TA10 PO; +URSO300C2 PO; +VITA1CAP PO
[2023-10-26] MEDS ORDERED: albumin 25% 100mL bottle x 1 IV PRN (06:45)
[2023-10-26 07:00] VITALS: BP 107/75; PULSE 85; RESP 16; TEMP 98.7; O2SAT 100
[2023-10-26 07:17] VITALS: BP 103/73; PULSE 85; RESP 16; O2SAT 100
[2023-10-26 07:32] VITALS: BP 96/71; PULSE 82; RESP 16; O2SAT 99
[2023-10-26 07:47] VITALS: BP 98/63; PULSE 78; RESP 16; O2SAT 100
[2023-10-26 08:00] VITALS: BP 98/67; PULSE 80; RESP 16; O2SAT 100
[2023-10-26 08:02] VITALS: BP 98/67; PULSE 80; RESP 16; O2SAT 100
== END 2023-10-26 08:10 | disposition home or self-care (01) ==
LOC: SSTAY O 05:59
PROVIDERS: ATTEND Internal Medicine Critical Care Medicine
DX: R18.8 Other ascites (principal); K72.10 Chronic hepatic failure without coma; Z79.899 Other long term (current) drug therapy; Z88.8 Allergy status to other drugs, medicaments and biological substances
CPT/HCPCS: 49083; C1729; A6258

== ENCOUNTER 2023-11-30 06:52 | Day surgery (SDC) | payer MEDICAID ==
[~2023-11-30] VITALS: Ht 180.3 cm; Wt 65.3 kg
[2023-11-30 07:05] VITALS: BP 99/66; PULSE 81; RESP 14; TEMP 98; O2SAT 100
[2023-11-30] MEDS ORDERED: albumin 25% 100mL bottle x 1 IV PRN (07:10)
[2023-11-30 09:50] VITALS: BP 108/74; PULSE 75; RESP 14; O2SAT 97
[2023-11-30 10:04] VITALS: BP 93/51; PULSE 71; RESP 14; O2SAT 97
[2023-11-30 10:19] VITALS: BP 101/52; PULSE 79; RESP 14; O2SAT 97
[2023-11-30 10:34] VITALS: BP 101/52; PULSE 79; RESP 14; O2SAT 97
[2023-11-30 10:48] VITALS: BP 110/71; PULSE 80; RESP 14; O2SAT 97
== END 2023-11-30 10:50 | disposition home or self-care (01) ==
LOC: SSTAY O 06:52
PROVIDERS: ATTEND Internal Medicine Critical Care Medicine
DX: R18.8 Other ascites (principal); K72.10 Chronic hepatic failure without coma; Z88.8 Allergy status to other drugs, medicaments and biological substances
CPT/HCPCS: 49083; C1729; A6258; A6449